=== PATIENT | female | born 1995 | race Caucasian/White ===

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

== ENCOUNTER 2017-01-17 10:23 | Outpatient (CLI) | payer BC | END 2017-01-17 10:24 | disposition home or self-care (01) | LOC: LAB.R 10:23 | PROVIDERS: ATTEND Registered Nurse | DX: R10.2 Pelvic and perineal pain (principal) | CPT/HCPCS: 87491; 87591 ==

== ENCOUNTER 2017-03-02 17:35 | Emergency (ER) | payer OTHER, BC ==
[2017-03-02 17:41] VITALS: BP 119/68
[2017-03-02] MEDS ORDERED: PROPARACAINE 0.5% OPHTH DROPS 15 ML LEFTEYE STA (18:08)
[2017-03-02] MEDS ORDERED: PROPARACAINE 0.5% OPHTH DROPS 15 ML ONE (18:09)
[2017-03-02] MEDS ORDERED: ERYTHROMYCIN OPHTH OINT 1 GM TUBE LEFTEYE STA (18:29)
[2017-03-02] MEDS ORDERED: IBUPROFEN 400 MG TABLET PO STA (18:29)
--- NOTE | 2017-03-02 18:29 | ED Physician Documentation ---
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 : None HEENT: None Psych: None Musculoskeletal: None Derm: None - Past Surgical History Past Surgical History: No - Present Medications Home Medications: Ambulatory Orders Medication Instructions Recorded Confirmed Levothyroxine [Synthroid] 100 mg PO DAILY 08/07/15 03/02/17 Erythromycin Base [Erythromycin] 1 applic OP Q4H #1 tub 03/02/17 Ibuprofen [Motrin] 400 mg PO Q6H PRN #30 tablet 03/02/17 Propylene Glycol/Peg 400 1 drops OP Q1H PRN #1 bot 03/02/17 [Lubricant Eye Drops] - Allergies Allergies/Adverse Reactions: Allergies Allergy/AdvReac Type Severity Reaction Status Date / Time levothyroxine sodium AdvReac Rash Verified 03/02/17 17:41 Penicillins AdvReac Rash Verified 03/02/17 17:41 - Social History Does the pt smoke?: No Smoking Status: Never smoker Does the pt drink ETOH?: No Does the pt have substance abuse?: No - Immunizations Immunizations are current?: Yes - POLST Patient has POLST: No PD ED PE NORMAL - Vitals Vital signs reviewed: Yes - General General: Alert and oriented X 3 - HEENT HEENT: PERRL, EOMI, Other (flourescein uptake inf lat sclera, no corneal abn) Results - Vitals Vitals: Vital Signs - 24 hr 03/02/17 17:37 Temperature 36.9 C Heart Rate 83 Respiratory 16 Rate Blood Pressure 119/68 O2 Saturation 98 Oxygen O2 Source Room air Departure - Departure Disposition: 01 Home, Self Care Clinical Impression: Burn of eye Qualifiers: Encounter type: initial encounter Laterality: left Qualified Code(s): T26.42XA - Burn of left eye and adnexa, part unspecified, initial encounter Condition: Good Prescriptions: Erythromycin Base [Erythromycin] 1 applic OP Q4H #1 tub Ibuprofen [Motrin] 400 mg PO Q6H PRN #30 tablet PRN Reason: Pain Propylene Glycol/Peg 400 [Lubricant Eye Drops] 1 drops OP Q1H PRN #1 bot PRN Reason: eye pain Comments: Recommend motrin and cool compresses for the pain Use the antibiotic ointment every 4 hr while awake. Use the lubricating drops as often as you like Follow up with your digital project manager if not better by Saturday Forms: Activity restrictions
[2017-03-02] MEDS ORDERED: IBUPROFEN 400 MG TABLET PO ONE (18:42)
[2017-03-02] MEDS ORDERED: ERYTHROMYCIN OPHTH OINT 1 GM TUBE ONE (18:43)
== END 2017-03-02 19:06 | disposition home or self-care (01) ==
LOC: ED 17:35
DX: T26.42XA Burn of left eye and adnexa, part unspecified, initial encounter (principal); X19.XXXA Contact with other heat and hot substances, initial encounter; Y99.0 Civilian activity done for income or pay; E03.9 Hypothyroidism, unspecified
CPT/HCPCS: 99283; A9270; J3490

== ENCOUNTER 2017-03-13 08:00 | Outpatient (CLI) | payer BC | END 2017-03-13 23:59 | disposition home or self-care (01) | LOC: LAB.R 08:00 | PROVIDERS: ATTEND Registered Nurse | DX: A56.02 Chlamydial vulvovaginitis (principal) | CPT/HCPCS: 87491; 87591 ==

== ENCOUNTER 2017-07-24 22:44 | Emergency (ER) | payer BC ==
--- NOTE | 2017-07-25 00:23 | XRAY Report ---
EXAM: LEFT TIBIA/FIBULA RADIOGRAPHY EXAM DATE: 07/25/2017 12:09 AM. CLINICAL HISTORY: Fell through a deck. COMPARISON: None. TECHNIQUE: 2 views. FINDINGS: Bones: Normal. No fracture or bone lesion. Joints: The visualized knee and ankle joints are normal. No effusions. Soft Tissues: Normal. No soft tissue swelling. IMPRESSION: Normal tibia/fibula radiography. [facility] Referring Provider Line: [phone] SITE ID: [id number]
--- NOTE | 2017-07-25 00:38 | ED Physician Documentation ---
PD HPI LOWER EXT INJURY - Stated complaint Stated Complaint: LEG INJURY - Chief complaint Chief Complaint: Ext Problem - History of Present Illness PD HPI LOW EXT INJURY LOCATION: Left, Lower leg Type of injury: Other (fell through the deck) Where injury occurred: Home Timing - onset: How many days ago (4) Timing - details: Abrupt onset Worsened by: Moving, Palpating Associated symptoms: Swelling, Discolored Contributing factors: No: Anticoagulated Similar symptoms before: Has not had sx before Recently seen: Not recently seen - Additional information Additional information: Patient is a 22 year old female with no significant past medical history who is presenting to the emergency department for leg pain. patient states that a couple of days ago she was stepped through a piece of wood on her deck. Patient has had pain and bruising in her leg since then and patient states that it is getting progressively worse. Review of Systems Constitutional: denies: Fever, Chills Eyes: reports: Reviewed and negative Ears: reports: Reviewed and negative Nose: reports: Reviewed and negative Throat: reports: Reviewed and negative Cardiac: reports: Reviewed and negative Respiratory: reports: Reviewed and negative GI: reports: Reviewed and negative : reports: Reviewed and negative Skin: reports: Lesions, Abrasion (s). 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 : None HEENT: None Psych: None Musculoskeletal: None Derm: None - Past Surgical History Past Surgical History: Yes HEENT: Tonsil/Adenoidectomy - Present Medications Home Medications: Ambulatory Orders Medication Instructions Recorded Confirmed Cyclobenzaprine [Flexeril] 10 mg PO TID PRN #20 tablet 03/10/17 Levothyroxine Sodium [Synthroid] 1 tab PO DAILY 03/10/17 03/10/17 oxyCODONE/ACET 5/325 [Percocet 5 1 - 2 each PO Q6H PRN #14 tablet 03/10/17 mg/325 mg] - Allergies Allergies/Adverse Reactions: Allergies Allergy/AdvReac Type Severity Reaction Status Date / Time hydrocodone AdvReac Rash Verified 07/24/17 22:59 levothyroxine sodium AdvReac Rash Verified 03/10/17 00:17 Penicillins AdvReac Rash Verified 03/10/17 00:17 prednisolone AdvReac Unknown Verified 07/24/17 22:59 - Social History Does the pt smoke?: No Smoking Status: Never smoker Does the pt drink ETOH?: No Does the pt have substance abuse?: No - Immunizations Immunizations are current?: Yes - POLST Patient has POLST: No PD ED PE NORMAL - Vitals Vital signs reviewed: Yes - General General: Alert and oriented X 3, No acute distress - HEENT HEENT: Atraumatic, PERRL - Neck Neck: No bony TTP - Cardiac Cardiac: RRR - Respiratory Respiratory: No respiratory distress - Abdomen Abdomen: Non distended - Neuro Neuro: Alert and oriented X 3, No motor deficit, No sensory deficit Eye Opening: Spontaneous PD ED PE EXPANDED - Extremities Extremities: Left leg (tenderess, swelling and ecchymosis of left proximal lower leg), Motor intact, Sensory intact, Vascular intact, Tendon intact Results - Vitals Vitals: Vital Signs - 24 hr 07/24/17 22:56 Temperature 36.8 C Heart Rate 94 Respiratory 17 Rate Blood Pressure 132/62 H O2 Saturation 89 L Oxygen O2 Source Room air - Rads (name of study) tib fib Radiology: Final report received (no acute fracture or dislocation) PD MEDICAL DECISION MAKING - ED course Complexity details: reviewed old records, reviewed results, re-evaluated patient , considered differential, d/w patient, d/w family ED course: Patient was seen and examined at bedside. Imaging was ordered. When patient returned from imaging the results were reviewed. There was no acute fracture or dislocation. patient requiered no further work up and was stable for discharge with outpatient follow up. Departure - Departure Disposition: 01 Home, Self Care Clinical Impression: Contusion of leg, left Condition: Good Instructions: ED Contusion Lower Ext Follow-Up: Marlena Marquez PA-C [Primary Care Provider] - As Needed Comments: Your diagnostic today were within normal limits. there is no acute fracture or dislocation. You should continue to alternate between ice and heat on your leg. You can take motrin or tylenol as needed for pain. You can work, but you should try to elevate your leg when you are not working. Forms: Activity restrictions
[2017-07-25 00:46] VITALS: BP 129/71
== END 2017-07-25 00:46 | disposition home or self-care (01) ==
LOC: ED 22:44
DX: S80.12XA Contusion of left lower leg, initial encounter (principal); W17.89XA Other fall from one level to another, initial encounter; Y92.007 Garden or yard of unspecified non-institutional (private) residence as the place of occurrence of the external cause; E03.9 Hypothyroidism, unspecified
CPT/HCPCS: 99283

== ENCOUNTER 2018-06-14 18:10 | Emergency (ER) | payer BC, MEDICAID ==
[2018-06-14] MEDS ORDERED: SODIUM CHLORIDE 0.9% 1,000 ML IV ONE (18:52)
[2018-06-14] MEDS ORDERED: PROMETHAZINE INJ 25 MG in SODIUM CHLORIDE 0.9% 50 ML IV STA (18:53)
[2018-06-14] MEDS ORDERED: LOPERAMIDE 2 MG CAPSULE PO STA (18:53)
--- NOTE | 2018-06-14 18:54 | ED Physician Documentation ---
PD HPI NVD - Stated complaint Stated Complaint: N/V/F/D - Chief complaint Chief Complaint: Abd Pain - History obtained from History obtained from: Patient, Family - History of Present Illness Timing - onset: Other (This is a 23-year-old woman is been sick for about 5 days, it started with 3 days of vomiting. Then she was better for most of the day but now has vomiting and diarrhea without abdominal pain for the last 36 hours. She took a test yesterday which was negative. She has had some dizziness with it. Her brother was sick with GI symptoms last week.) Review of Systems Constitutional: denies: Fever, Chills Respiratory: denies: Dyspnea, Cough GI: reports: Nausea, Vomiting, Diarrhea. 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 : None HEENT: None Psych: None Musculoskeletal: None Derm: None - Past Surgical History Past Surgical History: Yes HEENT: Tonsil/Adenoidectomy - Present Medications Home Medications: Ambulatory Orders Medication Instructions Recorded Confirmed Cyclobenzaprine [Flexeril] 10 mg PO TID PRN #20 tablet 03/10/17 Levothyroxine Sodium [Synthroid] 1 tab PO DAILY 03/10/17 03/10/17 oxyCODONE/ACET 5/325 [Percocet 5 1 - 2 each PO Q6H PRN #14 tablet 03/10/17 mg/325 mg] Promethazine [Phenergan] 25 mg PO Q6H PRN #10 tab 06/14/18 - Allergies Allergies/Adverse Reactions: Allergies Allergy/AdvReac Type Severity Reaction Status Date / Time hydrocodone AdvReac Rash Verified 06/14/18 18:43 levothyroxine sodium AdvReac Rash Verified 06/14/18 18:43 Penicillins AdvReac Rash Verified 06/14/18 18:43 prednisolone AdvReac Unknown Verified 06/14/18 18:43 - Social History Does the pt smoke?: No Smoking Status: Never smoker Does the pt drink ETOH?: No Does the pt have substance abuse?: No - Immunizations Immunizations are current?: Yes - POLST Patient has POLST: No PD ED PE NORMAL - Vitals Vital signs reviewed: Yes - General General: Alert and oriented X 3, No acute distress - HEENT HEENT: PERRL, EOMI, Other (Tacky mucous membranes) - Neck Neck: Supple, no meningeal sign, No bony TTP - Cardiac Cardiac: RRR, No murmur - Respiratory Respiratory: No respiratory distress, Clear bilaterally - Abdomen Abdomen: Normal bowel sounds, Soft, Non tender - Neuro Neuro: Alert and oriented X 3, Normal speech - Psych Psych: Normal mood, Normal affect Results - Vitals Vitals: Vital Signs - 24 hr 06/14/18 18:38 Temperature 36.9 C Heart Rate 76 Respiratory 18 Rate Blood Pressure 137/77 H O2 Saturation 100 Oxygen O2 Source Room air - Labs Labs: Laboratory Tests 06/14/18 06/14/18 19:22 20:02 Sodium 135 Potassium 3.4 L Chloride 103 Carbon Dioxide 23 Anion Gap 9.0 BUN 11 Creatinine 0.7 Estimated GFR (MDRD) 106 Glucose 82 Calcium 9.2 Total Bilirubin 0.8 AST 18 ALT 15 Alkaline Phosphatase 68 Total Protein 8.2 Albumin 5.0 Globulin 3.2 Albumin/Globulin Ratio 1.6 Lipase 26 Urine Color YELLOW Urine Clarity CLEAR Urine pH 6.0 Ur Specific [place] 1.010 Urine Protein NEGATIVE Urine Glucose (UA) NEGATIVE Urine Ketones 15 H Urine Occult Blood NEGATIVE Urine Nitrite NEGATIVE Urine Bilirubin NEGATIVE Urine Urobilinogen 0.2 (NORMAL) Ur Leukocyte Esterase SMALL H Urine RBC None Seen Urine WBC 4-5 Ur Squamous Epith Cells MOD Squamous H Urine Bacteria Rare Ur Microscopic Review INDICATED Urine Culture Comments NOT INDICATED Urine HCG, Qual NEGATIVE PD MEDICAL DECISION MAKING - ED course ED course: 23-year-old woman with history of anxiety disorder presents with symptoms consistent with gastroenteritis as well as exposure to same. After the administration of Phenergan chosen for its anxiolytic Properties as well she was feeling good and passed an oral challenge. 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 Departure - Departure Disposition: 01 Home, Self Care Clinical Impression: Vomiting Qualifiers: Vomiting type: unspecified Vomiting Intractability: non-intractable Nausea presence: with nausea Qualified Code(s): R11.2 - Nausea with vomiting, unspecified Diarrhea Qualifiers: Diarrhea type: presumed infectious Qualified Code(s): R19.7 - Diarrhea, unspecified Condition: Good Record reviewed to determine appropriate education?: Yes Instructions: ED Nausea Vomiting Prescriptions: Promethazine [Phenergan] 25 mg PO Q6H PRN #10 tab PRN Reason: Nausea / Vomiting Comments: Return in 2 days if not better, anytime for new or worsening symptoms. Your blood pressure was elevated today on check into the emergency department. This does not mean that you have hypertension, it is a common phenomenon to come to the emergency department and have elevated blood pressure. I recommend that you see your primary care physician within the week to have it rechecked when you are feeling better. Forms: Activity restrictions
[2018-06-14 19:42] LABS: ALBUMIN/GLOBULIN RATIO 1.6 (1.0-2.2); BILIRUBIN,TOTAL 0.8 mg/dL (0.2-1.0); CALCIUM 9.2 mg/dL (8.5-10.3); CREATININE 0.7 mg/dL (0.4-1.0); TOTAL PROTEIN 8.2 g/dL (6.7-8.2)
[2018-06-14 20:15] LABS: BILIRUBIN,URINE NEGATIVE (NEGATIVE); GLUCOSE, URINE (UA) NEGATIVE (NEGATIVE); KETONES,URINE (UA) 15 mg/dL (NEGATIVE); LEUKOCYTE ESTERASE, URINE SMALL (NEGATIVE); NITRITE,URINE NEGATIVE (NEGATIVE); OCCULT BLOOD,URINE NEGATIVE (NEGATIVE); PROTEIN,URINE NEGATIVE (NEGATIVE); UROBILINOGEN,URINE 0.2 (NORMAL) E.U./dL (NORMAL)
[2018-06-14 20:23] LABS: CLARITY,URINE CLEAR (CLEAR); HCG UR QUAL NEGATIVE
[2018-06-14 20:35] LABS: BACTERIA,URINE Rare /HPF (None Seen); RBC,URINE None Seen /HPF (0-5); SQUAMOUS EPITHELIAL CELL,UR MOD Squamous (<= Few)
[2018-06-14] MEDS ORDERED: ONDANSETRON ODT 4 MG Prepack 2 TL STA (20:37)
[2018-06-14 20:43] VITALS: BP 119/75
== END 2018-06-14 20:48 | disposition home or self-care (01) ==
LOC: ED 18:10
DX: R11.2 Nausea with vomiting, unspecified (principal); R19.7 Diarrhea, unspecified; R03.0 Elevated blood-pressure reading, without diagnosis of hypertension; E03.9 Hypothyroidism, unspecified
CPT/HCPCS: 36415; 80053; 81001; 81025; 83690; 96361; 96374; 99283; A9270; J7040; 81003; 87086

== ENCOUNTER 2018-08-22 08:00 | Outpatient (CLI) | payer MEDICAID ==
[2018-08-22 18:48] LABS: BASOPHILS % (AUTO) 0.3 %; EOSINOPHILS # (AUTO) 0.2 10^3/uL (0.0-0.7); EOSINOPHILS % (AUTO) 2.1 %; HGB - HEMOGLOBIN 14.6 g/dL (12.0-16.0); LYMPHOCYTES # (AUTO) 2.1 10^3/uL (1.5-3.5); LYMPHOCYTES % (AUTO) 26.2 %; MEAN CORPUSCULAR HEMOGLOBIN 30.8 pg (27.0-31.0); MEAN CORPUSCULAR HGB CONC 33.1 g/dL (32.0-36.0); MEAN CORPUSCULAR VOLUME 92.9 fL (81.0-99.0); MEAN PLATELET VOLUME 8.1 fL (7.9-10.8); MONOCYTES # (AUTO) 0.7 10^3/uL (0.0-1.0); MONOCYTES % (AUTO) 8.9 %; NEUTROPHILS % (AUTO) 62.5 %; PLT - PLATELET COUNT 337 10^3/uL (130-450); RED BLOOD COUNT 4.75 10^6/uL (4.20-5.40); RED CELL DISTRIBUTION WIDTH 13.9 % (12.0-15.0)
[2018-08-23 11:57] LABS: HIV AG/AB 4TH GEN NON-REACTIVE (NON-REACTIVE)
== END 2018-08-22 23:59 | disposition home or self-care (01) ==
LOC: LAB.WCP 08:00
PROVIDERS: ATTEND Physician Assistant
DX: E03.9 Hypothyroidism, unspecified (principal); F32.9 Major depressive disorder, single episode, unspecified; Z11.3 Encounter for screening for infections with a predominantly sexual mode of transmission; A74.9 Chlamydial infection, unspecified
CPT/HCPCS: 36415; 80050; 87389; 87491; 87591

== ENCOUNTER 2018-08-26 08:00 | Outpatient (CLI) | payer MEDICAID | END 2018-08-26 08:01 | disposition home or self-care (01) | LOC: LAB.R 08:00 | PROVIDERS: ATTEND Physician Assistant | DX: A74.9 Chlamydial infection, unspecified (principal) | CPT/HCPCS: 87491; 87591 ==

== ENCOUNTER 2018-10-04 09:36 | Emergency (ER) | payer MEDICAID ==
[2018-10-04] MEDS ORDERED: HYDROmorphone 1 MG/ML CARPUJECT IVP STA ×2 (10:09→11:31)
[2018-10-04] MEDS ORDERED: ONDANSETRON 4 MG/2 ML VIAL IVP STA ×2 (10:09→12:47)
--- NOTE | 2018-10-04 10:11 | ED Physician Documentation ---
PD HPI FEMALE - Stated complaint Stated Complaint: ABD PX/FEMALE - Chief complaint Chief Complaint: Abd Pain - History obtained from History obtained from: Patient - History of Present Illness Timing - onset: Enter time (0130), Last night Timing - duration: Hours Timing - details: Abrupt onset, Still present Associated symptoms: Pelvic pain Contributing factors: IUD. No: Similar symptoms before: Has not had sx before Recently seen: Not recently seen - Additional information Additional information: 23-year-old previously well female with an IUD in place began to feel a pressure after intercourse about midnight last night following that she developed a sharper pain that progressed and peaked at about 1:30 in the morning. She has had persistent pain since and she is come to the emergency department this morning with pain that is severe and worse with any movement or deep breathing.She believes she may be about mid cycle and she has had problems previously with ovarian cyst. She has a sister who has had an ovary removed secondary to torsion. Review of Systems Constitutional: denies: Fever Eyes: denies: Decreased vision, Photophobia Ears: denies: Ear pain Nose: denies: Rhinorrhea / runny nose, Congestion Throat: denies: Sore throat Respiratory: denies: Cough GI: reports: Abdominal Pain. 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 : None HEENT: None Psych: None Musculoskeletal: None Derm: None - Past Surgical History Past Surgical History: Yes HEENT: Tonsil/Adenoidectomy - Present Medications Home Medications: Ambulatory Orders Medication Instructions Recorded Confirmed Levothyroxine Sodium [Synthroid] 1 tab PO DAILY 03/10/17 10/04/18 Ondansetron Odt [Zofran] 4 mg TL Q6H PRN #10 tablet 10/04/18 Oxycodone HCl/Acetaminophen 1 - 2 each PO Q6H PRN #14 tablet 10/04/18 [Percocet 5-325 mg Tablet] - Allergies Allergies/Adverse Reactions: Allergies Allergy/AdvReac Type Severity Reaction Status Date / Time hydrocodone AdvReac Rash Verified 10/04/18 09:48 levothyroxine sodium AdvReac Rash Verified 10/04/18 09:48 Penicillins AdvReac Rash Verified 10/04/18 09:48 prednisolone AdvReac Unknown Verified 10/04/18 09:48 - Social History Does the pt smoke?: No Smoking Status: Never smoker Does the pt drink ETOH?: No Does the pt have substance abuse?: No - Immunizations Immunizations are current?: Yes - POLST Patient has POLST: No PD ED PE NORMAL - Vitals Vital signs reviewed: Yes (normal ) - General General: Alert and oriented X 3, Well developed/nourished, Other (appears to be in significant grunting pain with movement appears comfortable if she is completely still. ) - HEENT HEENT: Atraumatic, PERRL, EOMI - Neck Neck: Supple, no meningeal sign - Cardiac Cardiac: RRR, No murmur - Respiratory Respiratory: No respiratory distress, Clear bilaterally - Abdomen Abdomen: Soft, Other (mild suprapubic tenderness ) - Back Back: No CVA TTP, No spinal TTP - Derm Derm: Normal color, Warm and dry, No rash - Extremities Extremities: No deformity, No edema - Neuro Neuro: Alert and oriented X 3, contact assembler 2-12 intact, No motor deficit, No sensory deficit, Normal speech Eye Opening: Spontaneous Motor: Obeys Commands Verbal: Oriented GCS Score: 15 - Psych Psych: Normal mood, Normal affect Results - Vitals Vitals: Vital Signs - 24 hr 10/04/18 10/04/18 10/04/18 09:45 11:45 13:57 Temperature 36.4 C L 36.9 C Heart Rate 97 87 55 L Respiratory 14 24 18 Rate Blood Pressure 126/65 117/76 131/58 H O2 Saturation 100 98 100 Oxygen O2 Source Room air - Labs Labs: Laboratory Tests 10/04/18 10/04/18 10/04/18 10:14 10:14 10:14 WBC 10.1 RBC 4.53 Hgb 14.0 Hct 41.1 MCV 90.6 MCH 30.9 MCHC 34.1 RDW 13.1 Plt Count 303 MPV 7.4 L Neut # (Auto) 7.3 H Lymph # (Auto) 2.0 [place] # (Auto) 0.6 Eos # (Auto) 0.2 Baso # (Auto) 0.0 Absolute Nucleated RBC 0.00 Nucleated RBC % 0.0 Sodium 140 Potassium 3.5 Chloride 105 Carbon Dioxide 23 Anion Gap 12.0 BUN 13 Creatinine 0.8 Estimated GFR (MDRD) 91 Glucose 117 H Calcium 9.0 Total Bilirubin 0.8 AST 21 ALT 13 Alkaline Phosphatase 59 Total Protein 6.6 L Albumin 3.9 Globulin 2.7 Albumin/Globulin Ratio 1.4 Lipase 23 HCG, Quant < 0.60 Urine Color Urine Clarity Urine pH Ur Specific [place] Urine Protein Urine Glucose (UA) Urine Ketones Urine Occult Blood Urine Nitrite Urine Bilirubin Urine Urobilinogen Ur Leukocyte Esterase Urine RBC Urine WBC Ur Squamous Epith Cells Urine Bacteria Ur Microscopic Review Urine Culture Comments 10/04/18 10:28 WBC RBC Hgb Hct MCV MCH MCHC RDW Plt Count MPV Neut # (Auto) Lymph # (Auto) [place] # (Auto) Eos # (Auto) Baso # (Auto) Absolute Nucleated RBC Nucleated RBC % Sodium Potassium Chloride Carbon Dioxide Anion Gap BUN Creatinine Estimated GFR (MDRD) Glucose Calcium Total Bilirubin AST ALT Alkaline Phosphatase Total Protein Albumin Globulin Albumin/Globulin Ratio Lipase HCG, Quant Urine Color YELLOW Urine Clarity HAZY Urine pH 6.0 Ur Specific [place] <=1.005 Urine Protein NEGATIVE Urine Glucose (UA) NEGATIVE Urine Ketones NEGATIVE Urine Occult Blood NEGATIVE Urine Nitrite NEGATIVE Urine Bilirubin NEGATIVE Urine Urobilinogen 0.2 (NORMAL) Ur Leukocyte Esterase NEGATIVE Urine RBC 0-5 Urine WBC 4-5 Ur Squamous Epith Cells MANY Squamous H Urine Bacteria Many H Ur Microscopic Review INDICATED Urine Culture Comments NOT INDICATED - Rads (name of study) us pelvis Radiology: Prelim report reviewed (Impression: 1. Right ovary complex 3.6 cm cyst possibly hemorrhagic cyst. Normal blood flow seen in the right ovary. Follow-up ultrasound in 1-2 cycles. 2 Arterial and venous Blood flow are present to the ovaries bilaterally.), EMP read indepedently, See rad report Procedures - Bedside sono Bedside sono by EMP: With use of bedside ultrasound the pelvis is imaged the bladder is full there is no significant free fluid there is a generous endometrial stripe, or the IUD. I am not able to image either ovary. PD MEDICAL DECISION MAKING - ED course Complexity details: reviewed old records, reviewed results, re-evaluated patient, considered differential, d/w patient, d/w family ED course: 23-year-old female with acute pelvic pain has a hemorrhagic ovarian cyst on ultrasound examination. She is able to control her pain with intravenous Di laudid and Zofran and she would like to try to go home and control her pain there.She is encouraged to return to the emergency department for pain that she is not able to control. Departure - Departure Disposition: Home, Self Care Clinical Impression: Hemorrhagic cyst of right ovary Condition: Stable Instructions: ED Cyst Ovarian Follow-Up: Teresita Avery PA [Primary Care Provider] - [facility] [Provider Group] Prescriptions: Ondansetron Odt [Zofran] 4 mg TL Q6H PRN #10 tablet PRN Reason: Nausea / Vomiting Oxycodone HCl/Acetaminophen [Percocet 5-325 mg Tablet] 1 - 2 each PO Q6H PRN #14 tablet PRN Reason: pain Forms: Activity restrictions
[2018-10-04 10:19] LABS: BASOPHILS % (AUTO) 0.2 %; EOSINOPHILS # (AUTO) 0.2 10^3/uL (0.0-0.7); EOSINOPHILS % (AUTO) 1.6 %; MEAN CORPUSCULAR HEMOGLOBIN 30.9 pg (27.0-31.0); MEAN CORPUSCULAR HGB CONC 34.1 g/dL (32.0-36.0); MEAN CORPUSCULAR VOLUME 90.6 fL (81.0-99.0); MEAN PLATELET VOLUME 7.4 fL (7.9-10.8); MONOCYTES # (AUTO) 0.6 10^3/uL (0.0-1.0); MONOCYTES % (AUTO) 5.6 %; NEUTROPHILS # (AUTO) 7.3 10^3/uL (1.5-6.6); NEUTROPHILS % (AUTO) 72.6 %; PLT - PLATELET COUNT 303 10^3/uL (130-450); RED BLOOD COUNT 4.53 10^6/uL (4.20-5.40); RED CELL DISTRIBUTION WIDTH 13.1 % (12.0-15.0); WHITE BLOOD COUNT 10.1 x10^3/uL (4.8-10.8)
[2018-10-04 10:32] LABS: ALBUMIN 3.9 g/dL (3.2-5.5); ALBUMIN/GLOBULIN RATIO 1.4 (1.0-2.2); BILIRUBIN,TOTAL 0.8 mg/dL (0.2-1.0); CREATININE 0.8 mg/dL (0.4-1.0); TOTAL PROTEIN 6.6 g/dL (6.7-8.2)
[2018-10-04 10:51] LABS: BILIRUBIN,URINE NEGATIVE (NEGATIVE); GLUCOSE, URINE (UA) NEGATIVE (NEGATIVE); KETONES,URINE (UA) NEGATIVE (NEGATIVE); LEUKOCYTE ESTERASE, URINE NEGATIVE (NEGATIVE); NITRITE,URINE NEGATIVE (NEGATIVE); OCCULT BLOOD,URINE NEGATIVE (NEGATIVE); PROTEIN,URINE NEGATIVE (NEGATIVE); UROBILINOGEN,URINE 0.2 (NORMAL) E.U./dL (NORMAL)
[2018-10-04 10:55] LABS: CLARITY,URINE HAZY (CLEAR)
[2018-10-04 11:04] LABS: BACTERIA,URINE Many /HPF (None Seen); RBC,URINE 0-5 /HPF (0-5); SQUAMOUS EPITHELIAL CELL,UR MANY Squamous (<= Few)
--- NOTE | 2018-10-04 13:16 | Ultrasound Report ---
Reason: suprapubic pain severe mid cycle Procedure Date: 10/04/2018 Accession Number: [id number] / [id number] Procedure: US - Pelvic w/Transvag+Doppler Ltd CPT Code: FULL RESULT: EXAM: PELVIC ULTRASOUND WITH DOPPLERS CLINICAL HISTORY: Suprapubic pain severe mid cycle. COMPARISON: None. TECHNIQUE: Realtime transabdominal imaging performed to identify the uterus and adnexa and as an overview of other pelvic structures, followed by transvaginal imaging for better assessment of the endometrium and adnexa, with static image documentation. Color flow imaging and Doppler spectral analysis was performed to evaluate blood flow to the ovaries given pelvic pain and clinical concern for ovarian torsion. FINDINGS: Uterus: 8.3 x 3.7 x 5.9 cm, volume 96 cc. Anteverted position. Normal overall size and echotexture. Masses: None. Endometrium: 6 mm. IUD Cervix: Unremarkable. Right Ovary: 6.4 x 4 x 4.3 cm, volume 58 cc. Complex cyst 3.6 x 3.4 x 3.5 cm Arterial and venous blood flow are present. PSV 43 cm/sec. RI 0.5. Adnexa are unremarkable. Left Ovary: 3.8 x 1.9 x 3.6 cm, volume 13.4 cc. Normal echotexture. Arterial and venous blood flow are present. PSV 43 cm/sec. RI 0.9. Adnexa are unremarkable. Free Fluid: None. Other: None. IMPRESSION: 1. Right ovary complex 3.6 cm cyst possibly hemorrhagic cyst. Normal blood flow seen in the right ovary. Follow-up ultrasound in 1-2 cycles 2. Arterial and venous blood flow are present to the ovaries bilaterally. RADIA
[2018-10-04 13:57] VITALS: BP 131/58
== END 2018-10-04 13:59 | disposition home or self-care (01) ==
LOC: ED 09:36
DX: N83.201 Unspecified ovarian cyst, right side (principal); E03.9 Hypothyroidism, unspecified; Z87.42 Personal history of other diseases of the female genital tract
CPT/HCPCS: 36415; 76830; 76856; 80053; 81001; 83690; 84702; 85025; 93976; 96374; 96375; 96376; 99284; J1170; 81003; 87086

== ENCOUNTER 2018-10-06 | Emergency (ER) | payer MEDICAID | END 2018-10-06 11:45 | disposition home or self-care (01) | DX: N83.201 Unspecified ovarian cyst, right side (principal); Z97.5 Presence of (intrauterine) contraceptive device | CPT/HCPCS: 36415; 76830; 76856; 80048; 81001; 81003; 85025; 87086; 93976; 96374; 99283; 99284 ==

== ENCOUNTER 2023-03-18 08:00 | Outpatient (CLI) | payer MEDICAID ==
[2023-03-18 15:55] LABS: BILIRUBIN,URINE NEGATIVE (NEGATIVE); GLUCOSE, URINE (UA) NEGATIVE (NEGATIVE); KETONES,URINE (UA) NEGATIVE (NEGATIVE); LEUKOCYTE ESTERASE, URINE NEGATIVE (NEGATIVE); NITRITE,URINE NEGATIVE (NEGATIVE); OCCULT BLOOD,URINE NEGATIVE (NEGATIVE); PROTEIN,URINE NEGATIVE (NEGATIVE); UROBILINOGEN,URINE 0.2 (NORMAL) E.U./dL (NORMAL)
[2023-03-18 16:04] LABS: BACTERIA,URINE None Seen /HPF (None Seen); CLARITY,URINE CLEAR (CLEAR); MUCUS,URINE Few Strands; RBC,URINE 0-5 /HPF (0-5); SQUAMOUS EPITHELIAL CELL,UR RARE Squamous (<= Few); WBC,URINE 0-3 /HPF (0-5)
== END 2023-03-18 23:59 | disposition home or self-care (01) ==
LOC: LAB.WCP 08:00
PROVIDERS: ATTEND Obstetrics & Gynecology
DX: Z34.90 Encounter for supervision of normal pregnancy, unspecified, unspecified trimester (principal)
CPT/HCPCS: 81001; 87086

== ENCOUNTER 2023-03-19 12:40 | Outpatient (CLI) | payer MEDICAID ==
[2023-03-19 17:54] LABS: BASOPHILS % (AUTO) 0.4 %; EOSINOPHILS # (AUTO) 0.1 10^3/uL (0.0-0.7); EOSINOPHILS % (AUTO) 0.5 %; HCT - HEMATOCRIT 40.6 % (37.0-47.0); HGB - HEMOGLOBIN 13.8 g/dL (12.0-16.0); LYMPHOCYTES # (AUTO) 2.1 10^3/uL (1.5-3.5); MEAN CORPUSCULAR HEMOGLOBIN 30.3 pg (27.0-31.0); MEAN PLATELET VOLUME 10.2 fL (7.9-10.8); MONOCYTES # (AUTO) 0.8 10^3/uL (0.0-1.0); MONOCYTES % (AUTO) 7.3 %; NEUTROPHILS # (AUTO) 7.4 10^3/uL (1.5-6.6); NEUTROPHILS % (AUTO) 71.5 %; PLT - PLATELET COUNT 326 10^3/uL (130-450); RED BLOOD COUNT 4.56 10^6/uL (4.20-5.40); RED CELL DISTRIBUTION WIDTH 12.8 % (12.0-15.0); WHITE BLOOD COUNT 10.3 x10^3/uL (4.8-10.8)
[2023-03-21 06:09] LABS: HBsAG SCREEN Negative (Negative)
[2023-03-21 07:10] LABS: RPR Non Reactive (Non Reactive)
[2023-03-21 09:09] LABS: VARICELLA-ZOSTER AB IGG 323 index (Immune >165)
[2023-03-22 01:08] LABS: HCV AB Non Reactive (Non Reactive); HIV SCREEN 4TH GENERATION Non Reactive (Non Reactive)
== END 2023-03-19 12:41 | disposition home or self-care (01) ==
LOC: LAB.N 12:40
PROVIDERS: ATTEND Obstetrics & Gynecology
DX: Z34.90 Encounter for supervision of normal pregnancy, unspecified, unspecified trimester (principal)
CPT/HCPCS: 36415; 85025; 86592; 86762; 86787; 86803; 86850; 86900; 86901; 87340; 87389

== ENCOUNTER 2023-03-22 08:48 | Emergency (ER) | payer MEDICAID ==
--- NOTE | 2023-03-22 09:15 | ED Physician Documentation ---
PD HPI NVD - Stated complaint Stated Complaint: N/V - Chief complaint Chief Complaint: Abd Pain - History obtained from History obtained from: Patient - History of Present Illness Timing - onset: How many days ago (particularly worse the past 3 days with vomiting several times daily and persistent nausea. Has had nausea with vomiting daily for the past 4 weeks after discovering that she was (at about 5 weeks EGA). Had an appt with [facility] with Rx for Zofran, but has had increased N/V recently.), How many weeks ago (about 4 weeks of nausea with occasional vomiting total.) Timing - duration: Weeks Timing - details: Gradual onset, Still present, Waxing and waning (with worse the last several days.) Associated symptoms: Abdominal pain (intermitent lower abd cramping without vaginal bleeding.), Loss of appetite. No: Fever, Dysuria, Vaginal bleeding, Vaginal dc Contributing factors: Other ( 9 weeks EGA.). No: Sick contact Improved by: No: Vomiting Worsened by: Eating Similar symptoms before: Has not had sx before Recently seen: Clinic (couple weeks ago for initial OB visit. Rx Zofran and has appt for outpt US in 2 days.) Review of Systems Constitutional: reports: Fatigue. denies: Fever, Chills, Myalgias Throat: denies: Sore throat Respiratory: denies: Cough GI: reports: Nausea, Vomiting. denies: Constipation, Diarrhea : reports: Now EGA (9 weeks). 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 : None HEENT: None Psych: None Musculoskeletal: None Derm: None - Past Surgical History Past Surgical History: Yes HEENT: Tonsil/Adenoidectomy - Present Medications Home Medications: Ambulatory Orders Medication Instructions Recorded Confirmed Ondansetron Odt [Zofran] 4 mg TL Q6H PRN #10 tablet 10/06/18 03/22/23 Famotidine [Pepcid] 20 mg PO DAILY #20 tablet 03/22/23 Promethazine Supp [Phenergan Supp] 25 mg PA Q6H PRN #10 supp 03/22/23 Promethazine [Phenergan] 25 mg PO Q6H PRN #15 tab 03/22/23 Pyridoxine HCl (Vitamin B6) 25 mg PO BID #60 tablet 03/22/23 [Vitamin B-6] dexAMETHasone [Decadron] 4 mg PO DAILY #5 tablet 03/22/23 - Allergies Allergies/Adverse Reactions: Allergies Allergy/AdvReac Type Severity Reaction Status Date / Time hydrocodone AdvReac Rash Verified 03/22/23 09:25 levothyroxine sodium AdvReac Rash Verified 03/22/23 09:25 Penicillins AdvReac Rash Verified 03/22/23 09:25 prednisolone AdvReac Unknown Verified 03/22/23 09:25 - Social History Does the pt smoke?: No Smoking Status: Never smoker Does the pt drink ETOH?: No Does the pt have substance abuse?: No - Immunizations Immunizations are current?: Yes - POLST Patient has POLST: No PD ED PE NORMAL - Vitals Vital signs reviewed: Yes - General General: Alert and oriented X 3, No acute distress, Well developed/nourished - HEENT HEENT: Pharynx benign. No: Moist mucous membranes - Neck Neck: Supple, no meningeal sign, No adenopathy - Cardiac Cardiac: RRR, No murmur - Respiratory Respiratory: Clear bilaterally - Abdomen Abdomen: Normal bowel sounds, Soft, Non tender, Non distended, Other (limited bedside US showing IUP with some movement and FHR noted. No pelvic free fluid. Size appears c/w dates or slightly further. ) Results - Vitals Vitals: Vital Signs - 24 hr 03/22/23 03/22/23 03/22/23 08:53 10:33 12:15 Temperature 36.7 C Heart Rate 81 66 63 Respiratory 20 18 18 Rate Blood Pressure 139/80 H 117/69 102/68 O2 Saturation 99 97 100 Oxygen O2 Source Room air - Labs Labs: Laboratory Tests 03/22/23 03/22/23 03/22/23 09:15 09:48 09:48 WBC 8.6 RBC 4.60 Hgb 14.1 Hct 40.4 MCV 87.8 MCH 30.7 MCHC 34.9 RDW 12.5 Plt Count 324 MPV 9.2 Neut # (Auto) 6.4 Lymph # (Auto) 1.6 [place] # (Auto) 0.5 Eos # (Auto) 0.1 Baso # (Auto) 0.0 Absolute Nucleated RBC 0.00 Nucleated RBC % 0.0 Sodium 136 Potassium 3.7 Chloride 104 Carbon Dioxide 24 Anion Gap 8.0 BUN 6 Creatinine 0.6 Estimated GFR (MDRD) 122 Glucose 83 Calcium 9.5 Magnesium 1.8 Total Bilirubin 0.5 AST 12 ALT 9 L Alkaline Phosphatase 56 Total Protein 6.9 Albumin 4.7 Globulin 2.2 Albumin/Globulin Ratio 2.1 Lipase < 10 L Urine Color LT. YELLOW Urine Clarity HAZY Urine pH 6.5 Ur Specific [place] <=1.005 Urine Protein NEGATIVE Urine Glucose (UA) NEGATIVE Urine Ketones 15 H Urine Occult Blood NEGATIVE Urine Nitrite NEGATIVE Urine Bilirubin NEGATIVE Urine Urobilinogen 0.2 (NORMAL) Ur Leukocyte Esterase NEGATIVE Urine RBC 0-5 Urine WBC 0-3 Ur Squamous Epith Cells MOD Squamous H Urine Bacteria Few Ur Microscopic Review INDICATED Urine Culture Comments NOT INDICATED PD Medical Decision Making - ED course Complexity details: reviewed results (normal CBC, lytes, glucose and UA - reviewed by me. ), re-evaluated patient (She is feeling improved with IV fluids and combo meds of Zofran, Compazine, toradol (which is okay under 20 wks gestation).), considered differential ( and has had some N/V for about 4 weeks, worse the past several days. No URI symptoms. No diarrhea. Presume related and not c/w GE. Check lytes, glucose, cbc, UA. ), d/w patient ED course: bedside US sby me showing normal IUP with distinguished torso, some movement and FHR. Has formal US in 2 days so I did not do dating but size appeared c/w dates or slightly further. Departure - Departure Disposition: 01 Home, Self Care Clinical Impression: Nausea and vomiting, , Dehydration during Condition: Stable Record reviewed to determine appropriate education?: Yes Instructions: ED Preg Morning Sickness, ED Nausea Vomiting Follow-Up: José Chavez MD [Primary Care Provider] - Prescriptions: dexAMETHasone [Decadron] 4 mg PO DAILY #5 tablet Famotidine [Pepcid] 20 mg PO DAILY #20 tablet Promethazine [Phenergan] 25 mg PO Q6H PRN #15 tab PRN Reason: Nausea / Vomiting Promethazine Supp [Phenergan Supp] 25 mg PA Q6H PRN #10 supp PRN Reason: Nausea / Vomiting Pyridoxine HCl (Vitamin B6) [Vitamin B-6] 25 mg PO BID #60 tablet Comments: , Medications to take for related nausea can be doxylamine vitamin B6. I wrote for prescription for that twice daily with food. You have the ondansetron to use for nausea. I added promethazine as oral tablet or suppository to add if needed. These can make you somewhat sleepy as they are antihistamines similar to the doxylamine. If you find still some consistent nausea, you could do dexamethasone which is a low-dose steroid for several days. This is also used in related nausea. It would have the possibility of causing some irritability but this is a fairly low dose. I sent these prescriptions to your preferred pharmacy. Small frequent fluids. [place] diet. You likely have some irritation of the stomach from the nausea and vomiting so an acid reducing medicine such as famotidine can be appropriate as well. Follow-up with the women's health clinic. See if they have a sooner appointment than your scheduled April. Call them later today. Return if worsening or not improved with the above medications. Forms: PCP List Discharge Date/Time: 03/22/23 12:30
[2023-03-22 09:44] LABS: BILIRUBIN,URINE NEGATIVE (NEGATIVE); GLUCOSE, URINE (UA) NEGATIVE (NEGATIVE); KETONES,URINE (UA) 15 mg/dL (NEGATIVE); LEUKOCYTE ESTERASE, URINE NEGATIVE (NEGATIVE); NITRITE,URINE NEGATIVE (NEGATIVE); OCCULT BLOOD,URINE NEGATIVE (NEGATIVE); PH,URINE 6.5 PH (5.0-7.5); PROTEIN,URINE NEGATIVE (NEGATIVE); UROBILINOGEN,URINE 0.2 (NORMAL) E.U./dL (NORMAL)
[2023-03-22 09:45] LABS: CLARITY,URINE HAZY (CLEAR)
[2023-03-22] MEDS ORDERED: KETOROLAC 15 MG/ML VIAL IVP STA (09:49)
[2023-03-22] MEDS ORDERED: PROCHLORPERAZINE 10 MG/2 ML VIAL IVP STA (09:49)
[2023-03-22] MEDS ORDERED: SODIUM CHLORIDE 0.9% 2,000 ML IV STA (09:49)
[2023-03-22] MEDS ORDERED: ONDANSETRON 4 MG/2 ML VIAL IVP STA (09:49)
[2023-03-22] MEDS ORDERED: FAMOTIDINE 20 MG/2 ML VIAL IVP STA (09:50)
[2023-03-22 09:57] LABS: BASOPHILS % (AUTO) 0.5 %; EOSINOPHILS # (AUTO) 0.1 10^3/uL (0.0-0.7); EOSINOPHILS % (AUTO) 0.6 %; HCT - HEMATOCRIT 40.4 % (37.0-47.0); HGB - HEMOGLOBIN 14.1 g/dL (12.0-16.0); LYMPHOCYTES # (AUTO) 1.6 10^3/uL (1.5-3.5); LYMPHOCYTES % (AUTO) 18.8 %; MEAN CORPUSCULAR HEMOGLOBIN 30.7 pg (27.0-31.0); MEAN CORPUSCULAR HGB CONC 34.9 g/dL (32.0-36.0); MEAN CORPUSCULAR VOLUME 87.8 fL (81.0-99.0); MEAN PLATELET VOLUME 9.2 fL (7.9-10.8); MONOCYTES # (AUTO) 0.5 10^3/uL (0.0-1.0); MONOCYTES % (AUTO) 5.7 %; NEUTROPHILS # (AUTO) 6.4 10^3/uL (1.5-6.6); NEUTROPHILS % (AUTO) 74.1 %; PLT - PLATELET COUNT 324 10^3/uL (130-450); RED CELL DISTRIBUTION WIDTH 12.5 % (12.0-15.0); WHITE BLOOD COUNT 8.6 x10^3/uL (4.8-10.8)
[2023-03-22 10:19] LABS: BACTERIA,URINE Few /HPF (None Seen); RBC,URINE 0-5 /HPF (0-5); SQUAMOUS EPITHELIAL CELL,UR MOD Squamous (<= Few); WBC,URINE 0-3 /HPF (0-5)
[2023-03-22 10:22] LABS: ALBUMIN 4.7 g/dL (3.2-5.5); ALBUMIN/GLOBULIN RATIO 2.1 (1.0-2.2); ALKALINE PHOSPHATASE 56 IU/L (42-121); ALT ALANINE AMINOTRANSFERASE 9 IU/L (10-60); AST ASPARTATE AMINOTRANSFERASE 12 IU/L (10-42); BILIRUBIN,TOTAL 0.5 mg/dL (0.2-1.0); BUN - BLOOD UREA NITROGEN 6 mg/dL (6-20); CALCIUM 9.5 mg/dL (8.5-10.3); CARBON DIOXIDE - CO2 24 mmol/L (21-32); CHLORIDE 104 mmol/L (101-111); CREATININE 0.6 mg/dL (0.6-1.3); GFR - MDRD 122 (>89); GLUCOSE 83 mg/dL (74-104); MAGNESIUM 1.8 mg/dL (1.7-2.3); POTASSIUM 3.7 mmol/L (3.5-4.5); SODIUM 136 mmol/L (135-145); TOTAL PROTEIN 6.9 g/dL (6.4-8.9)
[2023-03-22 10:30] LABS: LIPASE < 10 U/L (11-82)
[2023-03-22 12:20] VITALS: BP 102/68; O2SAT 100
== END 2023-03-22 12:30 | disposition home or self-care (01) ==
LOC: ED 08:48
DX: O21.8 Other vomiting complicating pregnancy (principal); E86.0 Dehydration; O99.281 Endocrine, nutritional and metabolic diseases complicating pregnancy, first trimester; Z3A.01 Less than 8 weeks gestation of pregnancy
CPT/HCPCS: 36415; 80053; 81001; 81003; 83690; 83735; 85025; 87086; 96361; 96374; 96375; 99284

== ENCOUNTER 2023-03-24 13:42 | Outpatient (CLI) | payer MEDICAID ==
--- NOTE | 2023-03-24 19:26 | Ultrasound Report ---
PROCEDURE: OB First Trimester w/TV INDICATIONS: POSITIVE TEST OUTSIDE/PRIOR DATING DATA: Last menstrual period (LMP): 01/28/2023. LMP-based estimated date of delivery (JESUS): 11/04/2023. First dating scan (date and location): 03/24/2023. Estimated date of delivery (JESUS) from first dating scan: 11/06/2023. TECHNIQUE: Real-time scanning was performed of the fetus and maternal pelvic organs, with image documentation. Endovaginal scanning was also performed to better visualize the fetus and maternal ovaries. COMPARISON: None. FINDINGS: Intrauterine gestational sac present. Embryo: pole with crown-rump length measuring 1.3 cm consistent with 7 weeks and 4 days. Heart rate: 169 bpm. Other: No perigestational fluid collection. Yolk sac is present. Measurement variability in dating: +/- 4 weeks by LMP, +/- 7 days by mean sac diameter (use before 6 weeks gestation if crown-rump length not able to be measured), +/- 5 days by crown-rump length (6-12 weeks gestation). Maternal organs: Ovaries appear within normal limits. Right ovarian corpus pseudocyst measuring 1.9 cm. IMPRESSION: Single live intrauterine consistent with 7 weeks and 4 days. Reviewed by: Irving Rosen MD on 03/24/2023 7:24 PM PST Approved by: Irving Rosen MD on 03/24/2023 7:24 PM PST Station ID: [id number]
== END 2023-03-24 13:43 | disposition home or self-care (01) ==
LOC: DI 13:42
PROVIDERS: ATTEND Obstetrics & Gynecology
DX: Z34.91 Encounter for supervision of normal pregnancy, unspecified, first trimester (principal)

== ENCOUNTER 2023-04-01 10:40 | Outpatient (CLI) | payer MEDICAID ==
[2023-04-02 20:48] LABS: CHLAMYDIA TRACHOMATIS DNA NEGATIVE (NEGATIVE); NEISSERIA GONORRHOEAE DNA NEGATIVE (NEGATIVE); TRICHOMONAS VAGINALIS DNA NEGATIVE (NEGATIVE)
== END 2023-04-01 23:59 | disposition home or self-care (01) ==
LOC: LAB.WC 10:40
PROVIDERS: ATTEND Obstetrics & Gynecology
DX: Z11.3 Encounter for screening for infections with a predominantly sexual mode of transmission (principal)
CPT/HCPCS: 87491; 87591; 87661

== ENCOUNTER 2023-04-08 11:36 | Outpatient (CLI) | payer MEDICAID | END 2023-04-08 11:37 | disposition home or self-care (01) | LOC: LAB 11:36 | PROVIDERS: ATTEND Obstetrics & Gynecology | DX: Z36.89 Encounter for other specified antenatal screening (principal); Z36.8A Encounter for antenatal screening for other genetic defects | CPT/HCPCS: 36415 ==

== ENCOUNTER 2023-06-15 01:53 | Emergency (ER) | payer MEDICAID ==
[2023-06-15 02:14] VITALS: O2SAT 99
[2023-06-15 02:28] LABS: BASOPHILS # (AUTO) 0.1 10^3/uL (0.0-0.1); BASOPHILS % (AUTO) 0.4 %; EOSINOPHILS # (AUTO) 0.2 10^3/uL (0.0-0.7); EOSINOPHILS % (AUTO) 1.4 %; HCT - HEMATOCRIT 36.9 % (37.0-47.0); HGB - HEMOGLOBIN 12.7 g/dL (12.0-16.0); LYMPHOCYTES # (AUTO) 3.3 10^3/uL (1.5-3.5); LYMPHOCYTES % (AUTO) 24.8 %; MEAN CORPUSCULAR HEMOGLOBIN 31.2 pg (27.0-31.0); MEAN CORPUSCULAR HGB CONC 34.4 g/dL (32.0-36.0); MEAN CORPUSCULAR VOLUME 90.7 fL (81.0-99.0); MEAN PLATELET VOLUME 9.4 fL (7.9-10.8); MONOCYTES % (AUTO) 7.3 %; NEUTROPHILS # (AUTO) 8.7 10^3/uL (1.5-6.6); NEUTROPHILS % (AUTO) 65.6 %; PLT - PLATELET COUNT 325 10^3/uL (130-450); RED BLOOD COUNT 4.07 10^6/uL (4.20-5.40); WHITE BLOOD COUNT 13.3 x10^3/uL (4.8-10.8)
[2023-06-15 02:30] LABS: BILIRUBIN,URINE NEGATIVE (NEGATIVE); GLUCOSE, URINE (UA) NEGATIVE (NEGATIVE); KETONES,URINE (UA) NEGATIVE (NEGATIVE); LEUKOCYTE ESTERASE, URINE NEGATIVE (NEGATIVE); NITRITE,URINE NEGATIVE (NEGATIVE); OCCULT BLOOD,URINE MODERATE (NEGATIVE); PH,URINE 6.5 PH (5.0-7.5); PROTEIN,URINE NEGATIVE (NEGATIVE); UROBILINOGEN,URINE 0.2 (NORMAL) E.U./dL (NORMAL)
[2023-06-15 02:59] LABS: ALBUMIN/GLOBULIN RATIO 1.7 (1.0-2.2); BILIRUBIN,TOTAL 0.2 mg/dL (0.2-1.0); CALCIUM 9.4 mg/dL (8.5-10.3); CREATININE 0.5 mg/dL (0.6-1.3); POTASSIUM 3.9 mmol/L (3.5-4.5); TOTAL PROTEIN 6.3 g/dL (6.4-8.9)
[2023-06-15 03:16] LABS: CLARITY,URINE CLEAR (CLEAR)
[2023-06-15 03:17] LABS: BACTERIA,URINE Rare /HPF (None Seen); RBC,URINE 0-5 /HPF (0-5); SQUAMOUS EPITHELIAL CELL,UR MOD Squamous (<= Few); WBC,URINE 0-3 /HPF (0-5)
--- NOTE | 2023-06-15 04:11 | ED Physician Documentation ---
PD HPI FEMALE - Stated complaint Stated Complaint: CRAMPING - Chief complaint Chief Complaint: Abd Pain - History obtained from History obtained from: Patient - Additional information Additional information: HPI from patient. Patient is 19.5 weeks , primagravida. At approximately 01:30 this morning, patient had scant blood when wiping after urinating. She says the toilet paper had "pink" on it; she subsequently had mild suprapubic cramping that waxes and wanes without exacerbating or ameliorating factors. She had one more episode of bright red blood (on pad) which she is confident was vaginal (and not urethral/in urine). She has not had any clots. Denies fever. Aside from mild suprapubic cramping, denies abdominal pain. 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 : None HEENT: None Psych: None Musculoskeletal: None Derm: None Other Past Medical History: Candy disease - Past Surgical History Past Surgical History: Yes HEENT: Tonsil/Adenoidectomy - Present Medications Home Medications: Ambulatory Orders Medication Instructions Recorded Confirmed No Known Home Medications 06/15/23 06/15/23 - Allergies Allergies/Adverse Reactions: Allergies Allergy/AdvReac Type Severity Reaction Status Date / Time hydrocodone AdvReac Rash Verified 06/15/23 02:06 levothyroxine sodium AdvReac Rash Verified 06/15/23 02:06 Penicillins AdvReac Rash Verified 06/15/23 02:06 prednisolone AdvReac Unknown Verified 06/15/23 02:06 - Social History Does the pt smoke?: No Smoking Status: Never smoker Does the pt drink ETOH?: No Does the pt have substance abuse?: No - Immunizations Immunizations are current?: Yes - POLST Patient has POLST: No PD ED PE NORMAL - Vitals Vital signs reviewed: Yes - General General: Alert and oriented X 3, No acute distress, Well developed/nourished - Cardiac Cardiac: RRR, No murmur - Respiratory Respiratory: No respiratory distress, Clear bilaterally - Abdomen Abdomen: Soft, Non tender - Back Back: No CVA TTP Results - Vitals Vitals: Oxygen O2 Source Room air - Labs Labs: Laboratory Tests 06/15/23 06/15/23 06/15/23 02:13 02:19 02:19 WBC 13.3 H RBC 4.07 L Hgb 12.7 Hct 36.9 L MCV 90.7 MCH 31.2 H MCHC 34.4 RDW 13.0 Plt Count 325 MPV 9.4 Neut # (Auto) 8.7 H Lymph # (Auto) 3.3 [place] # (Auto) 1.0 Eos # (Auto) 0.2 Baso # (Auto) 0.1 Absolute Nucleated RBC 0.00 Nucleated RBC % 0.0 Sodium 136 Potassium 3.9 Chloride 106 Carbon Dioxide 22 Anion Gap 8.0 BUN 8 Creatinine 0.5 L Estimated GFR (MDRD) 149 Glucose 90 Calcium 9.4 Total Bilirubin 0.2 AST 13 ALT 12 Alkaline Phosphatase 61 Total Protein 6.3 L Albumin 4.0 Globulin 2.3 Albumin/Globulin Ratio 1.7 Lipase 15 Urine Color LIGHT YELLOW Urine Clarity CLEAR Urine pH 6.5 Ur Specific [place] <=1.005 Urine Protein NEGATIVE Urine Glucose (UA) NEGATIVE Urine Ketones NEGATIVE Urine Occult Blood MODERATE H Urine Nitrite NEGATIVE Urine Bilirubin NEGATIVE Urine Urobilinogen 0.2 (NORMAL) Ur Leukocyte Esterase NEGATIVE Urine RBC 0-5 Urine WBC 0-3 Ur Squamous Epith Cells MOD Squamous H Urine Bacteria Rare Ur Microscopic Review INDICATED Urine Culture Comments NOT INDICATED - Rads (name of study) OB 14+ weeks US Relevant Findings:: Prelim report reviewed, See rad report PD Medical Decision Making - ED course Complexity details: reviewed results, re-evaluated patient, considered differential, d/w patient ED course: Mild leukocytosis on CBC (13.3 wbc). Unremarkable ER abdominal panel. UA with moderate blood on macro but normal microscopic except squamous cells. US shows single viable IUP without evidence of complications such as abruption or previa. Results d/w patient, return precautions reviewed. Etiology of her symptoms is not apparent at this time. 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 Departure - Departure Disposition: 01 Home, Self Care Clinical Impression: Vaginal bleeding during Condition: Good Instructions: ED Pelvic Pain Preg UKO 2 or 3 Tri Comments: There were no concerning findings on tonight's tests including the blood test and urinalysis. The ultrasound does not demonstrate any problems with the . The cause of your symptoms is not apparent at this time. Follow up with your storekeeper helper, next available appointment Forms: PCP List Discharge Date/Time: 06/15/23 08:08
[2023-06-15 07:14] VITALS: BP 115/65
--- NOTE | 2023-06-15 08:29 | Ultrasound Report ---
PROCEDURE: OB 14+ Weeks INDICATIONS: 19.5 weeks ; vaginal bleeding, cramping OUTSIDE/PRIOR DATING DATA: Last menstrual period (LMP): 01/28/2023. LMP-based estimated date of delivery (JESUS): 11/04/2023. First dating scan (date and location): 03/24/2023. Estimated date of delivery (JESUS) from first dating scan: 11/06/2023. The below data below was generated using the ultrasound JESUS of 11/06/2023 TECHNIQUE: Real-time scanning was performed of the fetus, with image documentation and biometric measurements. Endovaginal scanning: Not performed. COMPARISON: 03/24/2023 FINDINGS: General: A single living intrauterine gestation is present. Presentation: Vertex Placenta: Placental position is anterior, without previa. The placenta is normal in appearance. heart rate: 138 beats per minute. Maternal cervical canal: 4.9 cm long; normal length is 2.5 cm or more. IMPRESSION: Single live intrauterine . The placenta is normal in appearance without evidence of previa. Reviewed by: Irving Rosen MD on 06/15/2023 8:28 AM PST Approved by: Irving Rosen MD on 06/15/2023 8:28 AM PST Station ID: [id number]
== END 2023-06-15 08:08 | disposition home or self-care (01) ==
LOC: ED 01:53
DX: O20.8 Other hemorrhage in early pregnancy (principal); Z3A.19 19 weeks gestation of pregnancy
CPT/HCPCS: 36415; 80053; 81001; 81003; 83690; 85025; 87086; 99283; 99284

== ENCOUNTER 2023-06-26 15:55 | Outpatient (CLI) | payer MEDICAID ==
--- NOTE | 2023-06-29 09:21 | Ultrasound Report ---
PROCEDURE: OB 14+ Weeks INDICATIONS: SUPERVISION OF OUTSIDE/PRIOR DATING DATA: Last menstrual period (LMP): 01/28/2023. LMP-based estimated date of delivery (JESUS): 11/04/2023. First dating scan (date and location): 03/24/2023. Estimated date of delivery (JESUS) from first dating scan: 11/06/2023. The below data below was generated using the ultrasound JESUS of 11/06/2023 TECHNIQUE: Real-time scanning was performed of the fetus, with image documentation and biometric measurements. Endovaginal scanning: Not performed. COMPARISON: OB ultrasound, 06/15/2023. FINDINGS: General: A single living intrauterine gestation is present. Presentation: Vertex. Placenta: Placental position is anterior, without previa. Amniotic fluid index: 17.4 cm, largest pocket 6.0 cm. heart rate: 152 beats per minute. Maternal cervical canal: Closed measuring 5.39 cm long; normal length is 2.5 cm or more. biometrics: Biparietal diameter: 4.9 cm; 20 weeks 6 days; 28.5% Head circumference: 19.02 cm; 21 weeks 2 days; 40.2% Abdominal circumference: 17.48 cm; 22 weeks 3 days; 78.0% Femur length: 3.82 cm; 22 weeks 2 days; 72.9% Estimated gestational age from initial scan: 21 weeks 2 days. Composite gestational age from present scan: 21 weeks 5 days. Estimated weight and percentile: 480.3 g; 86.9%. Measurement variability for biometric dating: +/- 10 days from 12-20 weeks gestation, +/- 2 weeks fro m 20-30 weeks gestation, +/- 3 weeks for 30 weeks gestation or later. Anatomic survey: Neuro: Ventricles are non-dilated at less than 10 mm. Cisterna magna is normal at 3-11 mm. Cerebel lum is normal in size and morphology. Nuchal skin fold: Normal at less than 6 mm between 14-20 weeks gestational age. Face: Nose and lips, facial profile are not well seen. Spine: No evidence for spina bifida. Heart: 4-chambered heart is present. The ventricular outflow tracts are not well seen. Diaphragm: Diaphragm is intact. Stomach: Left-sided stomach is present. Kidneys: No hydronephrosis. Normal is less than 5 mm in 2nd trimester, less than 7 mm in 3rd trimester. Cord: 3-vessel cord has orthotopic insertion. Bladder: Normal in size. Extremities: The extremities are not well seen. IMPRESSION: 1. A single living IUP with appropriate interval growth. 2. The face, cardiac outflow tract is an extremities are not well seen. Follow-up imaging is recommended. The rest of the anatomic survey is unremarkable. 3. weight is 86.9%. 4. ALESSANDRA 17.4 cm. Reviewed by: Delroy Weston MD on 06/29/2023 9:19 AM PST Approved by: Delroy Weston MD on 06/29/2023 9:19 AM PST Station ID: [id number]
== END 2023-06-26 15:56 | disposition home or self-care (01) ==
LOC: DI 15:55
PROVIDERS: ATTEND Nurse Practitioner Obstetrics & Gynecology
DX: Z34.02 Encounter for supervision of normal first pregnancy, second trimester (principal); Z36.89 Encounter for other specified antenatal screening

== ENCOUNTER 2023-07-10 12:51 | Outpatient (CLI) | payer MEDICAID ==
--- NOTE | 2023-07-10 21:29 | Ultrasound Report ---
PROCEDURE: OB Follow up INDICATIONS: SUPERVISION OF OUTSIDE/PRIOR DATING DATA: Last menstrual period (LMP): 01/28/2023. LMP-based estimated date of delivery (JESUS): 11/04/2023. First dating scan (date and location): 03/24/2023. Estimated date of delivery (JESUS) from first dating scan: 11/06/2023. The below data below was generated using the working JESUS of 11/06/2023 TECHNIQUE: Ultrasound of the gravid uterus was performed and recorded. COMPARISON: None. FINDINGS: General: A single live intrauterine gestation is present. Presentation: Vertex Placenta: Placental position is anterior without previa. Amniotic fluid index: 14.4 cm, within normal limits for gestational age. heart rate: 144 beats per minute. Maternal cervical canal: 3.7 cm long; normal length is 2.5 cm or more. Other: Right ventricular outflow track, left ventricular outflow track, four-chamber heart, nose, lip s and extremities are within normal limits. IMPRESSION: Single live intrauterine consistent with 23 week 0 day gestation by current ultrasound Remainder of the anatomic survey is within normal limits Reviewed by: Kamari Jimenez MD on 07/10/2023 8:28 PM [place] Approved by: Kamari Jimenez MD on 07/10/2023 8:28 PM [place] Station ID: [id number]
== END 2023-07-10 12:52 | disposition home or self-care (01) ==
LOC: DI 12:51
PROVIDERS: ATTEND Nurse Practitioner Obstetrics & Gynecology
DX: Z34.02 Encounter for supervision of normal first pregnancy, second trimester (principal); Z36.89 Encounter for other specified antenatal screening

== ENCOUNTER 2023-08-05 10:49 | Outpatient (CLI) | payer MEDICAID ==
[2023-08-05 11:36] LABS: GTT GLUCOSE,FASTING 77 mg/dL (74-109)
[2023-08-05 11:49] LABS: THYROID STIMULATING HORMONE 5.41 uIU/mL (0.34-5.60)
== END 2023-08-05 10:50 | disposition home or self-care (01) ==
LOC: LAB 10:49
PROVIDERS: ATTEND Nurse Practitioner Obstetrics & Gynecology
DX: O99.280 Endocrine, nutritional and metabolic diseases complicating pregnancy, unspecified trimester (principal); Z36.9 Encounter for antenatal screening, unspecified; Z67.91 Unspecified blood type, Rh negative
CPT/HCPCS: 36415; 82951; 84439; 84443; 86850

== ENCOUNTER 2023-11-12 14:23 | Inpatient (IN) | payer MEDICAID ==
[2023-11-12] MEDS ORDERED: TERBUTALINE 1 MG/ML VIAL SUBQ PRN (15:06)
[2023-11-12] MEDS ORDERED: METHYLERGONOVINE 0.2 MG/ML VIAL IM PRN (15:06)
[2023-11-12] MEDS ORDERED: OXYTOCIN/SODIUM CHLORIDE 500 ML IV PRN (15:06)
[2023-11-12] MEDS ORDERED: lidocaine 1% 20 ML MDV ID PRN (15:06)
[2023-11-12] MEDS ORDERED: TRANEXAMIC ACID IN NACL 1,000 MG/100 ML BAG IV PRN (15:06)
[2023-11-12] MEDS ORDERED: miSOPROStoL 200 MCG TABLET PR PRN (15:06)
[2023-11-12] MEDS ORDERED: SODIUM CHLORIDE FLUSH 0.9% 10 ML SYRINGE IVP PRN (15:06)
[2023-11-12] MEDS ORDERED: miSOPROStoL 200 MCG TABLET BC PRN (15:06)
[2023-11-12] MEDS ORDERED: OXYTOCIN 10 UNIT/ML VIAL IM PRN (15:06)
[2023-11-12] MEDS ORDERED: CARBOPROST TROMETHAMINE 250 MCG/ML VIAL IM PRN (15:06)
--- NOTE | 2023-11-12 15:19 | HISTORY & PHYSICAL EXAMINATION ---
Admit History - Visit Reason Visit Reason: Contractions, Membranes rupture - : 1 Parity: 0 Premature: 0 Ectopic: 0 : 0 [facility] This : positive: None Smoking Status: Never smoker - Mother's Labs Mother's Blood Type: positive: O Mother's RH: positive: Negative GBS: positive: Group B Step Negative Rubella Status: positive: Immune - Other Maternal History Other Maternal History: HPI: This 28 yo @ 41+1 weeks by sure LMP (01/28/2023) and confirmed by 7+4 week ultrasound. Upon arrival her cervix was 4/90/0 and vertex (by exam), grossly ruptured. She was seen in the clinic this morning, completed a reactive NST, ALESSANDRA 9.95. She then felt a small gush of fluid, then a larger gush that soaked her pants. SROM approximately 0830 (clear). SVE was 3/90/-1. She opted to work through early labor at home. She felt contractions became more intense about noon. She desires the lowest level of intervention possible as part of hospital . She has been a patient of [facility] since 19+2 weeks. 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 However, she denies having been evaluated by a neurologist. Was having intermittent tension- type headaches early in the third trimester that she felt were precursors to the psudo-seizures. However, with decreased family stressors, the headaches self- resolved and no psuedo-seizure events followed. No recent/current Headache, visual changes or right upper quadrant abdominal pain. Denies urinary urgency or dysuria. Denies new onset or significant Nausea/vomiting. Wiley and friend Reese, very supportive at bedside. Feels well informed. Mood is good. In the event of an emergency, she WILL accept a blood transfusion. Will desired Delayed cord clamping x2 hours Baby meds: considering vitamin K, DECLINING erythromycin and hep B. ROS: All other symptoms reviewed and were negative except per HPI. 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 Stopped drinking alcohol due to . Denies current use of tobacco, marijuana or other recreational drugs. Former tobacco user. Reports that she is safe in current relationship. Family Hx: Denies family history of congenital anomalies, Cystic Fibrosis or chromosomal abnormalities Recent BP: 116/81 Lab: CBC H&H: 132/38.9, PLT 335 FAS EFW: 86.9% Total maternal weight gain: 68# Allergies: penicillin, prednisolone, hydrocodone Medications: PNV, levothyroxine Course: Blood type O negative, antibody negative Rubella immune, Varicella Immune Hep B neg, Hep C neg HIV non-reactive, RPR non-reactive GCCT negative Genetic screening: NIPS negative Carrier screening: CF/SMA negative. FAS: 06/27/23 & 07/10/2023 (follow-up to complete scan) WNL glucola: 75g 1 hr = 122, 2 hr= 110 Tdap: declined GBS neg Physical exam: Normocephalic, atraumatic Heart RRR w/o M/G/R Lungs CTAB Abdomen gravid, soft, nontender. EFW: 4100 FHR baseline 135, moderate variability, + accelerations, no decelerations Contractions palpate moderate every 2.5-3.5 minutes with soft resting tone SVE 4/90/0, vertex, membranes grossly ruptured 1+ LE edema Mood is good. Assessment: 28 yo @ 41+ weeks gestation by 7+4 wk U/S Early labor, ruptured FHR 135, Category I GBS NEG Plan: Admit to [facility] expectant management Declines saline lock unless emergent situation encountered. Understands associated risk without immediate vascular access. Intermittent heart rate auscultation. Continuos EFM as indicated Jacuzzi PRN. Nitrous oxide PRN. Epidural PRN Maternal Request. Anticipate . Patient verbally consents to my participation in her care in my role as a student nurse astronomy teacher. LAKESHIA López, Student Nurse Supervisor Paper Machine - [facility] Current EDU 11/04/23 Gestation 41 Weeks and 1 Days 1 Vital Signs Temperature 36.7 C 07/09/24 14:35 Heart Rate 87 11/12/23 14:35 Respiratory Rate 18 11/12/23 14:35 Blood Pressure 116/81 H 11/12/23 14:35 Temperature 36.7 C 11/12/23 14:35 Heart Rate 87 11/12/23 14:35 Respiratory Rate 18 11/12/23 14:35 Blood Pressure 116/81 H 11/12/23 14:35 O2 Saturation If not protocol: Oxygen Flow, liters/minute Meds/Allgy - Home Medications Home Medications: Ambulatory Orders Medication Instructions Recorded Confirmed Acetaminophen [Tylenol] 650 mg PO Q6H PRN 11/12/23 11/12/23 Cetirizine [ZyrTEC] 10 mg PO DAILY PRN 11/12/23 11/12/23 Levothyroxine Sodium 50 mcg PO DAILY 11/12/23 11/12/23 Pnv No.95/Ferrous Fum/Folic AC 1 each PO DAILY 11/12/23 11/12/23 [ Tablet] - Allergies Allergies/Adverse Reactions: Allergies Allergy/AdvReac Type Severity Reaction Status Date / Time hydrocodone AdvReac Rash Verified 06/15/23 02:06 Penicillins AdvReac Rash Verified 11/12/23 15:42 prednisolone AdvReac Unknown Verified 06/15/23 02:06 Physical - Abdominal Exam Vital Signs: Temp Pulse Resp BP Pulse Ox O2 Flow Rate 36.7 C 87 18 116/81 H 11/12/23 14:35 11/12/23 14:35 11/12/23 14:35 11/12/23 14:35 Plan for Labor - Plan For Labor I expect patient to be DC'd or transferred within 96 hours.: Yes
[2023-11-12 15:38] LABS: BASOPHILS % (AUTO) 0.2 %; EOSINOPHILS # (AUTO) 0.1 10^3/uL (0.0-0.7); EOSINOPHILS % (AUTO) 0.6 %; HCT - HEMATOCRIT 38.3 % (37.0-47.0); HGB - HEMOGLOBIN 13.2 g/dL (12.0-16.0); LYMPHOCYTES # (AUTO) 1.8 10^3/uL (1.5-3.5); LYMPHOCYTES % (AUTO) 12.5 %; MEAN CORPUSCULAR HEMOGLOBIN 31.5 pg (27.0-31.0); MEAN CORPUSCULAR HGB CONC 34.5 g/dL (32.0-36.0); MEAN CORPUSCULAR VOLUME 91.4 fL (81.0-99.0); MEAN PLATELET VOLUME 9.5 fL (7.9-10.8); MONOCYTES # (AUTO) 1.1 10^3/uL (0.0-1.0); MONOCYTES % (AUTO) 7.9 %; NEUTROPHILS # (AUTO) 11.3 10^3/uL (1.5-6.6); NEUTROPHILS % (AUTO) 77.7 %; PLT - PLATELET COUNT 335 10^3/uL (130-450); RED BLOOD COUNT 4.19 10^6/uL (4.20-5.40); RED CELL DISTRIBUTION WIDTH 13.7 % (12.0-15.0); WHITE BLOOD COUNT 14.5 x10^3/uL (4.8-10.8)
--- NOTE | 2023-11-12 15:45 | PHARMACY PROGRESS NOTE ---
- Best Possible Medication History Admit Date and Time: Processed by: Pharmacy Medications reviewed in ED?: No Medication History completed: Yes Patient Interview: Completed Secondary Source(s): Insurance records As the person ultimately responsible for medication therapy, providers are able to order a medication from an existing home medication list in [facility] via the "Reconcile Routine" prior to Confirmation of that medication by administrative support associate. Such practice is discouraged except when the physician, in their clinical judgment, deems that a medical need exists for a medication without regard to previous use.
--- NOTE | 2023-11-12 19:54 | PROVIDER PROGRESS NOTE ---
Labor Progress Note - Uterine Monitoring Uterine Monitoring Mode: positive: External toco Contraction Frequency (min/apart): q2-3 Contraction Intensity: positive: Moderate to strong Uterine Resting Tone: positive: Soft - Monitoring Monitor Mode: positive: External ultrasound Heart Rate Baseline: 130's Heart Rate Variability: positive: Moderate (6-25 bmp) Accelerations: positive: Present, 15x15 Decelerations: positive: None - Vaginal Exam Dilation (in cm): 5 Effacement (%): 90 Station: 0 - Labor Progress Note Labor Progress Note/Additional Text: S: Focused and breathing and through contractions which have increased in intensity since her arrival. Doesn't feel the contractions are strong enough for nitrous just yet. Her partner and friend are supportive at bedside O: FHR 130s, no significant decelerations SVE 5/90/0, vertex. A: 28yo @ 41.1wks gestation by 7+4 week ultrasound Active labor Postdates GBS Negative P: Support active labor per patient preference Patient aware of positional changes and pain management options, will ask for these specific when desired Continuous monitoring Anticipate . LAKESHIA López, Student Nurse Recovery Collector
--- NOTE | 2023-11-12 22:40 | PROVIDER PROGRESS NOTE ---
Labor Progress Note - Uterine Monitoring Uterine Monitoring Mode: positive: External toco Contraction Frequency (min/apart): q2-3 Uterine Resting Tone: positive: Soft - Monitoring Monitor Mode: positive: External ultrasound Heart Rate Baseline: 145 Heart Rate Variability: positive: Moderate (6-25 bmp) Accelerations: positive: Present, 15x15, Prolonged accelerations (>2x10 min) Decelerations: positive: None Strip Review: positive: Category I - Vaginal Exam Dilation (in cm): 6 Effacement (%): 90 Station: 1 - Labor Progress Note Labor Progress Note/Additional Text: S: Breathing through contractions which have increased in intensity since her arrival. Her and friend are supportive at the bedside. Called in by nursing team for some transient tachycardia, now resolved. Likely secondary to time in Jacuzzi tub. O: FHR 145s CTX q 2-3 minutes SVE 6/90/+1, vertex. A: 28yo @ 41.1wks gestation by 7+4 wk U/S Active labor Postdates P: continue continuos monitoring Will encouraged continued positional changes and ambulation Anticipate . LAKESHIA López, Student Nurse Protective Services Case Worker
--- NOTE | 2023-11-13 01:53 | PROVIDER PROGRESS NOTE ---
Labor Progress Note - Uterine Monitoring Uterine Monitoring Mode: positive: External toco Contraction Frequency (min/apart): 3-5 Contraction Intensity: positive: Strong Uterine Resting Tone: positive: Soft - Monitoring Monitor Mode: positive: Spiral electrode Heart Rate Baseline: 135 Heart Rate Variability: positive: Moderate (6-25 bmp) Accelerations: positive: Present, 15x15 Decelerations: positive: Prolonged (>2x10 min) Strip Review: positive: Category II - Vaginal Exam Dilation (in cm): 7 Station: 1 - Labor Progress Note Labor Progress Note/Additional Text: S: Breathing through contractions, doing well. Her and friend are supportive at the bedside. O: Prolonged deceleration identified. CNM and student nurse staff midwife/apprenticeship director to bedside. FHR 135's CTX q 3-5 minutes SVE 7/90/+1, vertex. Noted edema to anterior lip of cervix. A: 28yo @ 41.2wks gestation by 7+4 wk U/S Active labor Postdates P: FSE placed to achieve continuos tracing. Recommended IV placement for resuscitation and IV Benadryl for cervical edema Will plan to recheck cervix in a few hours to assess for further dilation. Will encouraged continued positional changes and ambulation Anticipate . LAKESHIA López, Student Nurse Business Unit Controller
[2023-11-13] MEDS: diphenhydrAMINE INJ 50 MG/ML VIAL IVP SCH (02:10)
--- NOTE | 2023-11-13 06:27 | PROVIDER PROGRESS NOTE ---
Labor Progress Note - Uterine Monitoring Uterine Monitoring Mode: positive: External toco Contraction Frequency (min/apart): q4-6 - Monitoring Monitor Mode: positive: Spiral electrode Heart Rate Baseline: 120 Heart Rate Variability: positive: Moderate (6-25 bmp) Accelerations: positive: Present, 15x15 Decelerations: positive: None Strip Review: positive: Category I - Vaginal Exam Dilation (in cm): 7 Effacement (%): 80 Station: 1 Cervical Position: Anterior - Labor Progress Note Labor Progress Note/Additional Text: : Seemingly less uncomfortable than with last check. Able to doze between contractions the last few hours. States, "I'm ready to be done. I'm going to start having seizures if I don't have a baby soon." Her is supportive at the bedside. O: Primarily category I tracing. FHR 120's CTX q 5-6 minutes SVE 7/90/+1, vertex. Noted increased edema to anterior lip of cervix. Afebrile isolated, mildly elevated blood pressure A: 28yo @ 41.2wks gestation by 7+4 wk U/S prolonged transition, cervical exam unchanged from last exam. Increasing cervical edema. Postdates P: maintain FSE for continuos monitoring maintain IV access. Initiate oxytocin for labor augmentation at 2mu/min. Monitor BP for further elevations Will encouraged continued positional changes and ambulation Encouraged more significant pain management re: patient concern for pending psueodo seizure. LAKESHIA López, Student Nurse Glue Line Operator
[2023-11-13] MEDS ORDERED: LIDOCAINE 2%-EPI 1:100000 20 ML MDV ONE ×2 (07:08→08:56)
[2023-11-13] MEDS ORDERED: ROPIVACAINE 0.2% 200 MG/100 ML BAG EP ONE (07:08)
[2023-11-13] MEDS ORDERED: ROPIVACAINE 0.2% 200 MG/100 ML BAG EP PRN (08:00)
[2023-11-13] MEDS ORDERED: NALOXONE 0.4 MG/ML VIAL IVP PRN ×3 (08:00→11:12)
[2023-11-13] MEDS ORDERED: ePHEDrine 50 MG/ML VIAL IVP PRN ×2 (08:00→11:12)
[2023-11-13] MEDS: OXYTOCIN/SODIUM CHLORIDE 500 ML IV SCH (08:09)
[2023-11-13] MEDS: LACTATED RINGERS 1,000 ML IV SCH (08:22)
[2023-11-13 08:33] LABS: BASOPHILS % (AUTO) 0.2 %; HCT - HEMATOCRIT 37.7 % (37.0-47.0); HGB - HEMOGLOBIN 12.7 g/dL (12.0-16.0); LYMPHOCYTES # (AUTO) 1.4 10^3/uL (1.5-3.5); LYMPHOCYTES % (AUTO) 6.2 %; MEAN CORPUSCULAR HGB CONC 33.7 g/dL (32.0-36.0); MEAN PLATELET VOLUME 9.5 fL (7.9-10.8); MONOCYTES # (AUTO) 1.2 10^3/uL (0.0-1.0); MONOCYTES % (AUTO) 5.2 %; NEUTROPHILS # (AUTO) 19.8 10^3/uL (1.5-6.6); NEUTROPHILS % (AUTO) 87.6 %; PLT - PLATELET COUNT 337 10^3/uL (130-450); RED CELL DISTRIBUTION WIDTH 13.7 % (12.0-15.0); WHITE BLOOD COUNT 22.5 x10^3/uL (4.8-10.8)
[2023-11-13 08:37] LABS: SLIDE REVIEW? Indicated
[2023-11-13] MEDS: diphenhydrAMINE INJ 50 MG/ML VIAL IVP ONE (08:42)
[2023-11-13 08:49] LABS: ALBUMIN 3.8 g/dL (3.2-5.5); ALBUMIN/GLOBULIN RATIO 1.2 (1.0-2.2); BILIRUBIN,TOTAL 0.4 mg/dL (0.2-1.0); CALCIUM 9.4 mg/dL (8.5-10.3); CREATININE 0.7 mg/dL (0.6-1.3); POTASSIUM 4.1 mmol/L (3.5-4.5); RBC MORPHOLOGY (MULTIPLE) 1+ ANISOCYTOSIS (NORMAL); TOTAL PROTEIN 7.1 g/dL (6.4-8.9)
[2023-11-13 08:55] LABS: CREATININE,URINE 89.8 mg/dL; PROTEIN/CREATININE RATIO,URINE 0.1 (<=0.2)
[2023-11-13] MEDS ORDERED: PHENYLEPHRINE HCL 0.5 MG/5 ML AMPULE ONE (09:02)
[2023-11-13] MEDS ORDERED: fentaNYL 100 MCG/2 ML VIAL ONE (09:02)
[2023-11-13] MEDS ORDERED: DEXMEDETOMIDINE 200 MCG/2 ML VIAL ONE ×2 (09:08→11:31)
[2023-11-13] MEDS ORDERED: ONDANSETRON 4 MG/2 ML VIAL ONE (09:08)
[2023-11-13] MEDS ORDERED: SODIUM CHLORIDE 0.9% 10 ML VIAL IVP ONE ×2 (09:09→09:27)
[2023-11-13] MEDS ORDERED: AZITHROMYCIN INJ 500 MG in SODIUM CHLORIDE 0.9% 250 ML IV ONE (09:09)
[2023-11-13] MEDS ORDERED: OXYTOCIN 10 UNIT/ML VIAL ONE (09:13)
[2023-11-13] MEDS ORDERED: OXYTOCIN/SODIUM CHLORIDE 500 ML IV ONE ×2 (09:18→10:27)
[2023-11-13] MEDS ORDERED: CARBOPROST TROMETHAMINE 250 MCG/ML VIAL IM ONE ×2 (09:19→09:33)
[2023-11-13] MEDS ORDERED: miSOPROStoL 200 MCG TABLET ONE ×2 (09:19→09:31)
[2023-11-13] MEDS ORDERED: METHYLERGONOVINE 0.2 MG/ML VIAL ONE (09:20)
[2023-11-13] MEDS ORDERED: TRANEXAMIC ACID 1,000 MG/10 ML VIAL ONE (10:12)
[2023-11-13] MEDS ORDERED: NIFEdipine 10 MG CAPSULE PO PRN (10:49)
[2023-11-13] MEDS ORDERED: hydrALAZINE INJ 20 MG/ML VIAL IVP PRN ×2 (10:49)
[2023-11-13] MEDS ORDERED: CALCIUM CARBONATE CHEW 500 MG TABLET PO PRN (10:49)
[2023-11-13] MEDS ORDERED: SIMETHICONE CHEW 80 MG TABLET PO PRN (10:49)
[2023-11-13] MEDS ORDERED: OXYTOCIN/SODIUM CHLORIDE 500 ML IV PRN (10:49)
[2023-11-13] MEDS ORDERED: LABETALOL 20 MG/4 ML SYRINGE IVP PRN ×3 (10:49)
[2023-11-13] MEDS ORDERED: diphenhydrAMINE 25 MG CAPSULE PO PRN (10:49)
[2023-11-13] MEDS ORDERED: HYDROmorphone 0.5 MG/0.5 ML SYRINGE IVP PRN (11:12)
[2023-11-13] MEDS ORDERED: fentaNYL 100 MCG/2 ML VIAL IVP PRN (11:12)
[2023-11-13] MEDS ORDERED: ATROPINE ABBOJECT 1 MG/10 ML SYRINGE IVP PRN (11:12)
[2023-11-13] MEDS ORDERED: MORPHINE 2 MG/ML CARPUJECT IVP PRN (11:12)
[2023-11-13] MEDS ORDERED: METOCLOPRAMIDE 10 MG/2 ML VIAL IVP PRN (11:12)
[2023-11-13] MEDS: ONDANSETRON 4 MG/2 ML VIAL IVP PRN (11:21)
--- NOTE | 2023-11-13 11:26 | OPERATIVE REPORT ---
Operative Report - General Admit Date: 11/12/23 - Other Other Information/Narrative: DATE OF PROCEDURE: 11/13/23 Surgeon: Miah Nguyen MD Survey Supervisor: Shonda Buchanan CNM Pre-Op Diagnosis: intolerance of labor Post-Op Diagnosis: intolerance of labor, PPH secondary to uterine atony, possible endometritis Procedures: Primary low transverse delivery, placement of Betzaida device Findings: Normal appearing uterus/tubes/ovaries. in OP position. Signi ficant uterine atony for which she received IM hemabate x 2 doses, IM methergine x 1 dose, 600mcg buccal cytotec, and 1g IV TXA x 2 doses without improvement in uterus tone. Betzaida device was placed and tone rapidly improved. Specimens: none. Anesthesia Technique: epidural Estimated Blood Loss (mls): 1500cc Blood Replacement (mls): none Fluid Replacement (mls): see anesthesia record Drains: quevedo Complications: hemorrhage secondary to uterine atony Condition: stable Procedure in Detail: I was called to the operating room by Dr. Conroy for emergency delivery for deceleration x 9 min. On my arrival, patient was in the operating room in supine position on the table. I reviewed risks of delivery with her including pain, bleeding, infection, injury to nearby structures including but not limited to bowel/bladder, . She verbally consented to proceeding with delivery. The abdomen was prepped with iodine and then draped. She received 2g ancef and 500mg azithromycin for antibiotic prophylaxis in the OR. A pfannenstiel skin incision was made with the scalpel and carried down through the subcutaneous tissue in the midline. The remainder of the subcutaneous tissue was then bluntly. The fascia was incised in the midline and the incision was extended bluntly. The superior aspect of the fascia was grasped with kochers and the rectus muscles further dissected off the fascia bluntly and with Gresham scissors. Finger dissection was used to separate the rectus muscles in the midline and the peritoneum was entered and the layers extended bluntly. The bladder blade was then inserted. The lower uterine segment was incised in a transverse fashion with the scalpel. The uterine incision was extended bluntly. The bladder blade was removed and the infants head was brought to the hysterotomy. Fundal pressure applied and the infant delivered without difficulty The cord was clamped and cut after 60 sec and the infant was handed off to the waiting provider. The placenta was removed with gentle uterine massage and cord traction. The uterus was exteriorized and cleared of all clots and debris with moist laparotomy sponges. Atony noted and additional pitocin was administered by anesthesia team. IM hemabate and IV TXA were also given. The uterine incision was repaired with 0 Vicryl in a running fashion. A second layer of 0 monocryl was used in an imbricating fashion. Uterine atony persisted and she was given IM methergine and buccal cytotec. The posterior cul-de-sac was cleared of all clots and debris with laparotomy sponges, and the uterus was returned to the abdomen. Severe atony persisted with uterine massage. I then asked for the Betzaida device and Dr. Conroy was called to assist with placement. A 2nd dose of hemabate was given after 15 min. The patient's legs were frog-legged and Dr. Conroy placed the Betzaida device which was connected to suction at 80mm Hg. Tone then subsequently improved. The gutters were cleared of all clots. The hysterotomy was inspected and hemostatic. The rectus muscles were carefully examined and hemostatic. The fascia was reapproximated with 0-Vicry in a running fashion. The subcutaneous tissues was irrigated. The subcutaneous tissue was reapproximated with 2-0 Vicryl, and the skin was closed with 4-0 monocryl. The patient tolerated the procedure well. Sponge, lap, needle, and instrument counts were correct at the end of the procedure. The patient was taken to the recovery room in stable condition. In recovery, patient noted to have a fever to 105 as well as tachycardia of 120's. Fever possibly secondary to uterotonics given in OR vs endometritis. She was given IV tylenol, 1L fluid bolus, and additional antibiotic (ancef redosed due to BMI and EBL, also given gentamycin and clindamycin). Blood cultures obtained prior to additional antibiotics given. Miah Nguyen MD
[2023-11-13] MEDS ORDERED: ACETAMINOPHEN 1,000 MG/100 ML 1,000 MG/100 ML BAG IV ONE (11:40)
[2023-11-13] MEDS ORDERED: LACTATED RINGERS 1,000 ML IV SCH (12:00)
[2023-11-13 12:15] LABS: BASOPHILS # (AUTO) 0.1 10^3/uL (0.0-0.1); BASOPHILS % (AUTO) 0.3 %; HCT - HEMATOCRIT 35.3 % (37.0-47.0); HGB - HEMOGLOBIN 11.8 g/dL (12.0-16.0); LYMPHOCYTES # (AUTO) 0.9 10^3/uL (1.5-3.5); LYMPHOCYTES % (AUTO) 3.9 %; MEAN CORPUSCULAR HEMOGLOBIN 31.1 pg (27.0-31.0); MEAN CORPUSCULAR HGB CONC 33.4 g/dL (32.0-36.0); MEAN CORPUSCULAR VOLUME 92.9 fL (81.0-99.0); MEAN PLATELET VOLUME 9.5 fL (7.9-10.8); MONOCYTES # (AUTO) 0.9 10^3/uL (0.0-1.0); MONOCYTES % (AUTO) 3.6 %; NEUTROPHILS % (AUTO) 91.3 %; PLT - PLATELET COUNT 313 10^3/uL (130-450); RED CELL DISTRIBUTION WIDTH 13.8 % (12.0-15.0); WHITE BLOOD COUNT 24.1 x10^3/uL (4.8-10.8)
[2023-11-13 12:26] LABS: SLIDE REVIEW? Indicated
[2023-11-13] MEDS: KETOROLAC 30 MG/ML VIAL IVP SCH (12:27)
[2023-11-13] MEDS: CLINDAMYCIN 900 MG/50 ML 900 MG/50 ML BAG IV SCH (12:27)
[2023-11-13] MEDS: SODIUM CHLORIDE 0.9% IV ONE (12:28)
[2023-11-13] MEDS: GENTAMICIN IV ONE (12:28)
--- NOTE | 2023-11-13 12:37 | PROVIDER PROGRESS NOTE ---
Labor Progress Note - Uterine Monitoring Uterine Monitoring Mode: positive: External toco Contraction Frequency (min/apart): 5-7 Contraction Intensity: positive: Moderate Uterine Resting Tone: positive: Soft - Monitoring Monitor Mode: positive: External ultrasound Heart Rate Baseline: 120s Heart Rate Variability: positive: Moderate (6-25 bmp) Accelerations: positive: Present, 15x15 - Vaginal Exam Dilation (in cm): 8 - Labor Progress Note Labor Progress Note/Additional Text: Called to bedside for evaluation of bradycardia unresolved with position changes. Pt in right side lying and moves to hands and knees without improvement in heart tones. I states my significant concern for well being with both the patient her her and expressed my recommendation to consult with remote control assembler physician for STAT delivery secondary to intolerance of labor and pt verbally consents at this time. Pitocin had been started at 2mU/m and then discontinued immediately secondary to bradycardia. SVE 8 with continued cervical edema FHR 80s x 6 minutes with FSE in place. Contractions palpate moderate every 5-7 minutes with soft resting tone Assessment: 28yo @ 41.2wks gestation Postdates intolerance of labor GBS negative Plan: square dance caller physician notified of urgent need for evaluation for delivery due to bradycardia. Upon physician presentation to the unit, care was handed to remote control assembler physician who assumed all medical care for the patient moving forward.
[2023-11-13 12:41] LABS: PLATELET MORPHOLOGY NORMAL APPEARANCE (NORMAL)
[2023-11-13 12:42] LABS: PLATELET ESTIMATE, MANUAL NORMAL (130-450,000) (NORMAL); RBC MORPHOLOGY (MULTIPLE) NORMAL APPEARANCE (NORMAL)
[2023-11-13] MEDS: ceFAZolin 2 GM VIAL IVP STA (13:09)
[2023-11-13] MEDS: LACTATED RINGERS 1,000 ML IV PRN (13:24)
--- NOTE | 2023-11-13 13:56 | ANESTHESIA POST OP EVALUATION ---
Anesthesia Post Eval - Post Anesthesia Eval Vitals: Last Vital Signs Temp 39.8 C H 11/13/23 12:00 Pulse 130 H 11/13/23 12:15 Resp 18 11/13/23 12:15 BP 130/79 11/13/23 12:15 Pulse Ox 98 11/13/23 12:15 O2 Flow Rate CV Function Including HR & BP: Stable (tachy) Pain Control: Satisfactory Nausea & Vomiting: Negative Mental Status: Baseline Respiratory Status: Airway Patent Hydration Status: Satisfactory Anesthesia Complications: None (Febrile for PACU)
[2023-11-13 15:59] LABS: BASOPHILS # (AUTO) 0.1 10^3/uL (0.0-0.1); BASOPHILS % (AUTO) 0.2 %; HGB - HEMOGLOBIN 10.8 g/dL (12.0-16.0); LYMPHOCYTES # (AUTO) 1.1 10^3/uL (1.5-3.5); LYMPHOCYTES % (AUTO) 5.2 %; MEAN CORPUSCULAR HEMOGLOBIN 31.9 pg (27.0-31.0); MEAN CORPUSCULAR HGB CONC 34.8 g/dL (32.0-36.0); MEAN CORPUSCULAR VOLUME 91.4 fL (81.0-99.0); MEAN PLATELET VOLUME 9.4 fL (7.9-10.8); MONOCYTES # (AUTO) 0.6 10^3/uL (0.0-1.0); MONOCYTES % (AUTO) 2.8 %; NEUTROPHILS # (AUTO) 18.9 10^3/uL (1.5-6.6); NEUTROPHILS % (AUTO) 91.2 %; PLT - PLATELET COUNT 277 10^3/uL (130-450); RED BLOOD COUNT 3.39 10^6/uL (4.20-5.40); RED CELL DISTRIBUTION WIDTH 13.8 % (12.0-15.0); WHITE BLOOD COUNT 20.7 x10^3/uL (4.8-10.8)
[2023-11-13] MEDS: ACETAMINOPHEN 500 MG TABLET PO SCH (16:16)
[2023-11-13 16:25] LABS: DIFFERENTIAL COMMENT MANUAL=AUTO DIFF; PLATELET ESTIMATE, MANUAL NORMAL (130-450,000) (NORMAL); PLATELET MORPHOLOGY NORMAL APPEARANCE (NORMAL)
[2023-11-13 16:30] LABS: ALBUMIN/GLOBULIN RATIO 1.5 (1.0-2.2); BILIRUBIN,TOTAL 0.4 mg/dL (0.2-1.0); CALCIUM 8.7 mg/dL (8.5-10.3); CREATININE 0.7 mg/dL (0.6-1.3); POTASSIUM 3.8 mmol/L (3.5-4.5)
--- NOTE | 2023-11-13 20:14 | MISCELLANEOUS PROVIDER NOTE ---
Miscellaneous Provider Note - - Note: Ernestina was evaluated multiple times at the bedside by myself throughout the day. Postoperatively, had fever to 105 and tachycardia, lactic acid level elevated concerning for possible sepsis. She received IV antibiotics and 3L LR and is now afebrile with improving tachycardia. Lung exam clear between fluid boluses and she has maintained excellent UOP. No significant increase in LE edema, patient actually feels it is improved from yesterday. Reflex lactic acid level has not yet been drawn. I discussed with RN this afternoon and then again this evening, new order needed per lab. Overall clinically improved. Betzaida suction was turned off approximately 4 hrs postoperatively and then removed by RN with scant bleeding and firm fundus. Bleeding remains scant and fundus firm. I recommended to Ernestina that we keep [address] overnight[address] Ernestina requests to keep quevedo in until the AM. OK for regular diet. Continue IV antibiotics for at least 24 hours postoperatively. Miah Nguyen MD
[2023-11-13] MEDS: DOCUSATE SODIUM 100 MG CAPSULE PO SCH (20:30)
[2023-11-14 05:54] LABS: BASOPHILS % (AUTO) 0.2 %; EOSINOPHILS % (AUTO) 0.1 %; HCT - HEMATOCRIT 28.1 % (37.0-47.0); HGB - HEMOGLOBIN 9.5 g/dL (12.0-16.0); LYMPHOCYTES % (AUTO) 13.8 %; MEAN CORPUSCULAR HEMOGLOBIN 31.4 pg (27.0-31.0); MEAN CORPUSCULAR HGB CONC 33.8 g/dL (32.0-36.0); MEAN CORPUSCULAR VOLUME 92.7 fL (81.0-99.0); MEAN PLATELET VOLUME 9.3 fL (7.9-10.8); MONOCYTES % (AUTO) 10.1 %; NEUTROPHILS % (AUTO) 74.7 %; PLT - PLATELET COUNT 259 10^3/uL (130-450); RED BLOOD COUNT 3.03 10^6/uL (4.20-5.40); RED CELL DISTRIBUTION WIDTH 14.2 % (12.0-15.0); WHITE BLOOD COUNT 17.7 x10^3/uL (4.8-10.8)
[2023-11-14 05:58] LABS: ABNORMAL LYMPHS % (MANUAL) 0 %
[2023-11-14] MEDS ORDERED: CLINDAMYCIN 900 MG/50 ML 900 MG/50 ML BAG IV SCH (06:00)
[2023-11-14] MEDS: IBUPROFEN 600 MG TABLET PO SCH (06:37)
[2023-11-14 06:41] LABS: BAND NEUTROPHILS % (MANUAL) 8 %; DIFFERENTIAL COMMENT MANUAL DIFFERENTIAL; LYMPHOCYTES # (MANUAL) 2.8 10^3/uL (1.5-3.5); LYMPHOCYTES % (MANUAL) 16 %; MONOCYTES # (MANUAL) 1.1 10^3/uL (0.0-1.0); NEUTROPHILS # (MANUAL) 13.8 10^3/uL (1.5-6.6); PLATELET ESTIMATE, MANUAL NORMAL (130-450,000) (NORMAL); RBC MORPHOLOGY (MULTIPLE) NORMAL APPEARANCE (NORMAL)
[2023-11-14] MEDS: LEVOTHYROXINE 25 MCG TABLET PO SCH (06:42)
--- NOTE | 2023-11-14 09:13 | PROVIDER PROGRESS NOTE ---
Subjective - Prog Note Date Prog Note Date: 11/14/23 Prog Note Time: 09:09 - Subjective Subjective: She reports that she is feeling well. Pain is well controlled with current medications. She ambulated around room last evening with assistance from RN She is tolerating a normal diet without N/V. Hanson catheter removed this AM, has not yet tried to void. Lochia reported as minimal She reports she is passing flatus. Denies dizziness, CP, SOB, F/C. Objective - Vital Signs/Intake & Output Vital Signs: Vital Signs x48h Temp Pulse Resp BP Pulse Ox 11/14/23 07:50 97.5 F L 89 16 93/55 L 98 11/14/23 03:03 97.2 F L 98 18 107/68 96 Intake & Output: Intake & Output 11/11/23 11/12/23 11/13/23 11/14/23 23:59 23:59 23:59 23:59 Intake Total 798.967 500 Output Total 2600 Balance -1801.033 500 - Lab Results Fish Bones: 11/14/23 05:49 11/13/23 15:53 Other Labs: Lab Results x24hrs 11/14/23 11/13/23 11/13/23 Range/Units 05:49 15:53 15:53 WBC 17.7 H (4.8-10.8) x10^3/uL RBC 3.03 L (4.20-5.40) 10^6/uL Hgb 9.5 L (12.0-16.0) g/dL Hct 28.1 L (37.0-47.0) % MCV 92.7 (81.0-99.0) fL MCH 31.4 H (27.0-31.0) pg MCHC 33.8 (32.0-36.0) g/dL RDW 14.2 (12.0-15.0) % Plt Count 259 (130-450) 10^3/uL MPV 9.3 (7.9-10.8) fL Neut # (Auto) Not Reportable (1.5-6.6) 10^3/uL Lymph # (Auto) Not Reportable (1.5-3.5) 10^3/uL [place] # (Auto) Not Reportable (0.0-1.0) 10^3/uL Eos # (Auto) Not Reportable (0.0-0.7) 10^3/uL Baso # (Auto) Not Reportable (0.0-0.1) 10^3/uL Absolute Nucleated RBC Not Reportable x10^3/uL Total Counted 100 Band Neuts % (Manual) 8 Abnorm Lymph % (Manual) 0 Nucleated RBC % Not Reportable /100WBC Neutrophils # (Manual) 13.8 H Lymphocytes # (Manual) 2.8 Monocytes # (Manual) 1.1 H Eosinophils # (Manual) 0.0 Basophils # (Manual) 0.0 Differential Comment MANUAL DIFFERENTIAL Manual Slide Review Platelet Estimate NORMAL (130-450,000) (NORMAL) Platelet Morphology (NORMAL) RBC Morph Micro Appear NORMAL APPEARANCE (NORMAL) Cord ABG pH Cord ABG pCO2 Cord ABG pO2 Cord ABG HCO3 Cord ABG Total CO2 Cord ABG Base Excess Cord ABG O2 Sat Cord VBG pH Cord VBG pCO2 Cord VBG pO2 Cord VBG HCO3 Cord VBG Total CO2 Cord VBG Base Excess Cord VBG O2 Sat Sodium (135-145) mmol/L Potassium (3.5-4.5) mmol/L Chloride (101-111) mmol/L Carbon Dioxide (21-32) mmol/L Anion Gap (6-13) BUN (6-20) mg/dL Creatinine (0.6-1.3) mg/dL Estimated GFR (MDRD) (>89) Glucose (74-104) mg/dL Lactic Acid 2.1 (0.5-2.2) mmol/L Calcium (8.5-10.3) mg/dL Total Bilirubin (0.2-1.0) mg/dL AST (10-42) IU/L ALT (10-60) IU/L Alkaline Phosphatase (42-121) IU/L Total Protein (6.4-8.9) g/dL Albumin (3.2-5.5) g/dL Globulin (2.1-4.2) g/dL Albumin/Globulin Ratio (1.0-2.2) Blood Type O NEGATIVE Weak D (Du) WEAK-D NEGATIVE Maternal Bleed NEGATIVE (NEGATIVE) 11/13/23 11/13/23 11/13/23 Range/Units 15:53 15:53 12:09 WBC 20.7 H (4.8-10.8) x10^3/uL RBC 3.39 L (4.20-5.40) 10^6/uL Hgb 10.8 L (12.0-16.0) g/dL Hct 31.0 L (37.0-47.0) % MCV 91.4 (81.0-99.0) fL MCH 31.9 H (27.0-31.0) pg MCHC 34.8 (32.0-36.0) g/dL RDW 13.8 (12.0-15.0) % Plt Count 277 (130-450) 10^3/uL MPV 9.4 (7.9-10.8) fL Neut # (Auto) 18.9 H (1.5-6.6) 10^3/uL Lymph # (Auto) 1.1 L (1.5-3.5) 10^3/uL [place] # (Auto) 0.6 (0.0-1.0) 10^3/uL Eos # (Auto) 0.0 (0.0-0.7) 10^3/uL Baso # (Auto) 0.1 (0.0-0.1) 10^3/uL Absolute Nucleated RBC 0.00 x10^3/uL Total Counted Band Neuts % (Manual) Not Reportable Abnorm Lymph % (Manual) Not Reportable Nucleated RBC % 0.0 /100WBC Neutrophils # (Manual) Not Reportable Lymphocytes # (Manual) Not Reportable Monocytes # (Manual) Not Reportable Eosinophils # (Manual) Not Reportable Basophils # (Manual) Not Reportable Differential Comment MANUAL=AUTO DIFF Manual Slide Review Platelet Estimate NORMAL (130-450,000) (NORMAL) Platelet Morphology NORMAL APPEARANCE (NORMAL) RBC Morph Micro Appear 1+ MICROCYTOSIS (NORMAL) Cord ABG pH Cord ABG pCO2 Cord ABG pO2 Cord ABG HCO3 Cord ABG Total CO2 Cord ABG Base Excess Cord ABG O2 Sat Cord VBG pH Cord VBG pCO2 Cord VBG pO2 Cord VBG HCO3 Cord VBG Total CO2 Cord VBG Base Excess Cord VBG O2 Sat Sodium 135 (135-145) mmol/L Potassium 3.8 (3.5-4.5) mmol/L Chloride 105 (101-111) mmol/L Carbon Dioxide 20 L (21-32) mmol/L Anion Gap 10.0 (6-13) BUN 10 (6-20) mg/dL Creatinine 0.7 (0.6-1.3) mg/dL Estimated GFR (MDRD) 101 (>89) Glucose 119 H (74-104) mg/dL Lactic Acid 3.8 H* (0.5-2.2) mmol/L Calcium 8.7 (8.5-10.3) mg/dL Total Bilirubin 0.4 (0.2-1.0) mg/dL AST 28 (10-42) IU/L ALT 14 (10-60) IU/L Alkaline Phosphatase 119 (42-121) IU/L Total Protein 5.0 L (6.4-8.9) g/dL Albumin 3.0 L (3.2-5.5) g/dL Globulin 2.0 L (2.1-4.2) g/dL Albumin/Globulin Ratio 1.5 (1.0-2.2) Blood Type Weak D (Du) Maternal Bleed (NEGATIVE) 11/13/23 11/13/23 Range/Units 12:09 09:22 WBC 24.1 H (4.8-10.8) x10^3/uL RBC 3.80 L (4.20-5.40) 10^6/uL Hgb 11.8 L (12.0-16.0) g/dL Hct 35.3 L (37.0-47.0) % MCV 92.9 (81.0-99.0) fL MCH 31.1 H (27.0-31.0) pg MCHC 33.4 (32.0-36.0) g/dL RDW 13.8 (12.0-15.0) % Plt Count 313 (130-450) 10^3/uL MPV 9.5 (7.9-10.8) fL Neut # (Auto) 22.0 H (1.5-6.6) 10^3/uL Lymph # (Auto) 0.9 L (1.5-3.5) 10^3/uL [place] # (Auto) 0.9 (0.0-1.0) 10^3/uL Eos # (Auto) 0.0 (0.0-0.7) 10^3/uL Baso # (Auto) 0.1 (0.0-0.1) 10^3/uL Absolute Nucleated RBC 0.00 x10^3/uL Total Counted Band Neuts % (Manual) Abnorm Lymph % (Manual) Nucleated RBC % 0.0 /100WBC Neutrophils # (Manual) Lymphocytes # (Manual) Monocytes # (Manual) Eosinophils # (Manual) Basophils # (Manual) Differential Comment Manual Slide Review Indicated Platelet Estimate NORMAL (130-450,000) (NORMAL) Platelet Morphology NORMAL APPEARANCE (NORMAL) RBC Morph Micro Appear NORMAL APPEARANCE (NORMAL) Cord ABG pH TNP Cord ABG pCO2 TNP Cord ABG pO2 TNP Cord ABG HCO3 TNP Cord ABG Total CO2 TNP Cord ABG Base Excess TNP Cord ABG O2 Sat TNP Cord VBG pH TNP Cord VBG pCO2 TNP Cord VBG pO2 TNP Cord VBG HCO3 TNP Cord VBG Total CO2 TNP Cord VBG Base Excess TNP Cord VBG O2 Sat TNP Sodium (135-145) mmol/L Potassium (3.5-4.5) mmol/L Chloride (101-111) mmol/L Carbon Dioxide (21-32) mmol/L Anion Gap (6-13) BUN (6-20) mg/dL Creatinine (0.6-1.3) mg/dL Estimated GFR (MDRD) (>89) Glucose (74-104) mg/dL Lactic Acid (0.5-2.2) mmol/L Calcium (8.5-10.3) mg/dL Total Bilirubin (0.2-1.0) mg/dL AST (10-42) IU/L ALT (10-60) IU/L Alkaline Phosphatase (42-121) IU/L Total Protein (6.4-8.9) g/dL Albumin (3.2-5.5) g/dL Globulin (2.1-4.2) g/dL Albumin/Globulin Ratio (1.0-2.2) Blood Type Weak D (Du) Maternal Bleed (NEGATIVE) - Other Results/Comments Other Results/Comments: GENERAL: NAD, sitting up in bed Resp: non-labored respirations ABDOMEN: Soft, appropriately tender, no significant distention. Fundus firm. INCISION: Dressing clean and intact. EXT: trace LE edema. No evidence of DVT. Sepsis Event Note (H) - Evaluation Current Stage of Sepsis: Resolved Possible source of Sepsis: positive: Genitourinary - Sepsis Criteria Sepsis Criteria: Suspected or Documented, Recorded Temperature greater than 38.3C or Less than 36C, Recorded Heart Rate greater than 90 bpm, WBC count greater than 12,000 or less than 4000, Metabolic: lactate > 2 mmol/L Assessment/Plan - Problem List (1) S/P section Impression: - Overall doing well this morning - Continue routine postoperative care - Recommended inpatient monitoring for 24-48 hrs after last fever. (2) Postoperative fever Impression: Fever after delivery, possibly secondary to sepsis vs reaction from uterotonics administered at time of delivery. Initial lactate elevated, repeat normal. Ta chycardia resolved. Blood cultures pending. Received last dose of IV antibiotic this AM, will monitor today. Overall clinically improved. (3) Acute blood loss anemia Impression: - asymptomatic, lochia miminimal. PO PO Fe on discharge. (6) Rh negative state in antepartum period Impression: - Rhogam if indicated
[2023-11-14] MEDS: ONDANSETRON 4 MG/2 ML VIAL IVP PRN (10:01)
[2023-11-14] MEDS: oxyCODONE 5 MG TABLET PO PRN (10:01)
[2023-11-14] MEDS ORDERED: IBUPROFEN 600 MG TABLET PO SCH (11:00)
[2023-11-14] MEDS: RHO(D) IMMUNE GLOBULIN 300 MCG SYRINGE IVP ONE (11:55)
[2023-11-14] MEDS: ENOXAPARIN 40 MG/0.4 ML SYRINGE SUBQ SCH (16:33)
[2023-11-15 10:30] VITALS: O2SAT 99
[2023-11-15 14:43] VITALS: BP 116/62
--- NOTE | 2023-11-15 19:19 | Labor Flowsheet ---
Labor Flowsheet Datetime Report Generated by CPN: 11/15/2023 19:19 Datetime: 11/13/2023 14:46 Membranes Ruptured Date/Time: 11/12/2023 08:30 Membranes Rupture Method: Spontaneous Amniotic Fluid Color: Clear Datetime: 11/13/2023 08:54 Communication Comments: EFMs disconnected. Patient transports from [id number] to OR1 via bed by Bobbi mazariegos RN, Atul Buchanan CNM and Katherin Dixon APRN. FSE removed in OR prior to C/S. Datetime: 11/13/2023 08:48 VITAL SIGNS NBP Sys/Heike/Mean (mmHg): 96 : 77 : 81 LaborFlag: Labor Datetime: 11/13/2023 08:46 Pulse: 102 Datetime: 11/13/2023 08:45 SpO2 (%): 99 MEDICATIONS Pitocin (milliunits): Discontinued PATIENT CARE IV/Blood Work: IV Bolus Started; IV Bolus Given ml @ 999 Datetime: 11/13/2023 08:44 Patient Position/Activity: Right Lateral COMMUNICATION Communication: RN at Bedside; RN Reviewed Strip Datetime: 11/13/2023 08:30 UTERINE ACTIVITY Monitor Mode: External Frequency (min): 9-10 Duration (sec): 80-100 Pattern: Normal: <= 5 Contractions in 10 Minutes Pitocin Checklist: At Least 1 Acceleration of 15 bpm x 15 Seconds in 30 Minutes or Adequate Variabi lity; No More than 1 Late Deceleration Occurred in Past 30 Minutes; No More than 2 Variable Decelerat ions > 60 Seconds in Duration and decreasing >60 bpm in 30 minutes; No More than 5 Uterine Contractio ns in 10 Minutes for any 20 Minute Interval; Uterus Palpates Soft between Contractions; IUPC Resting Tone less than 25 mmHg ASSESSMENT A Monitor Mode: Internal Scalp Electrode FHR Baseline Rate : 130 Variability: Moderate 6-25 bpm Accelerations: 15X15 Decelerations: None Category: Category I Datetime: 11/13/2023 08:08 I/O Interventions: Hanson Cath Inserted Datetime: 11/13/2023 08:00 Quality: Moderate Resting Tone (Palpate): Relaxed Datetime: 11/13/2023 07:28 ANESTHESIA Epidural Procedure: Cath Placed Datetime: 11/13/2023 07:14 Patient Care Comments: Patient sitting up for epidural Datetime: 11/13/2023 07:10 Notification Reason: Status Update; Status; Labor Status Datetime: 11/13/2023 07:03 Provider Notified (Name): A. Magy, IMMUNOPATHOLOGIST Datetime: 11/13/2023 07:00 FHR Baseline Changes: No Baseline Change Oxygen Method: Room Air Datetime: 11/13/2023 06:40 TEACHING Instructional Method: Verbal Plan of Care: Plan of Care Discussed Labor/Induction: Augmentation Pain Management: IV Narcotics; Epidural Teaching Comments: Discussed px management options prior to starting pitocin per pt's request. Datetime: 11/13/2023 06:07 Exam by: K. Burckhardt, [employer] Vaginal Exam Comments: unchanged Datetime: 11/13/2023 04:30 Actions for Decelerations: Other Comments: interrupted strip pattern d/t maternal repositioning/movement. Briefly switched out FSE t o external monitoring for pt to go to BR Datetime: 11/13/2023 03:23 Monitor Interventions for UA: [place] Adjusted Contraction Comments: baselined Datetime: 11/13/2023 02:11 Analgesics/Sedatives: Benadryl (mg) @ 25 Datetime: 11/13/2023 01:41 Monitor Interventions for FHR: FSE Applied Datetime: 11/13/2023 01:39 VAGINAL EXAM Dilatation (cm): 7.0 Station: 1 Datetime: 11/12/2023 22:43 Effacement (%): 100 Datetime: 11/12/2023 22:35 Nausea/Vomiting: Present Datetime: 11/12/2023 21:10 Pain Coping: Breathing Through Contractions; Crying; Writhing Datetime: 11/12/2023 21:03 Temperature (C): 37.1 Datetime: 11/12/2023 19:56 Pain Assessment Comments: Pt requests nitrous Datetime: 11/12/2023 19:45 MATERNAL ASSESSMENT Level of Consciousness: Alert DTR's/Clonus: No Clonus Headache: Denies Breath Sounds, Left: Clear and Equal Breath Sounds, Right: Clear and Equal Datetime: 11/12/2023 19:38 PAIN Pain Scale: 8 Pain Type: Contraction Pain Relief Measures: Comfort Measures Comfort Measures: Breathing/Relaxation; Family Support Datetime: 11/12/2023 17:52 Stage of : Labor
--- NOTE | 2023-11-15 19:28 | DISCHARGE SUMMARY ---
"Discharge Summary Admit Date: 11/12/23 Discharge Date: 11/15/23 Discharging Provider: Yulia Clemens MD Code Status: Attempt Resuscitation Condition at Discharge: Good Discharge Disposition: 01 Home, Self Care - DIAGNOSES Admission Diagnoses: Rupture of membranes at term. obesity excessive weight gain in Rh neg. Discharge Diagnoses with Status of Each Condition: spontaneous labor at 41 weeks. progressed to 8 cm with swollen cervix, prolonged first stage of labor bradycardia resulting in emergency c section severe uterine atony requiring Betzaida device after multiple medications failed to precipitate adequate uterine contraction. pp high fever - unclear if from overmedication with misoprostol for atony or true endometritis. antibiotics given for 24 hrs with no further fever. obesity post operative anemia treated with po iron and not symptomatic. - HPI History of Present Illness: Patient received care with Shonda Buchanan CNM. She presented with SROM at home in active labor. complicated by hypothyroid, obesity, pseudoseizures. She desired a low intervention . - CONSULTS | PROCEDURES Procedures: Primary low tranverse c section with uterine atony requiring placement of Betzaida device. November 13, 2023 - HOSPITAL COURSE Hospital Course: Admitted in labor, 5 cm. progressed slowly overnight. She got to 8 cm and had bradycardia at about 8 am. She was taken back for emergency c section. Baby was 4319 gram, 21 3/4 in long, apgars were 9/9. C section was complicated by lack of contraction of the uterus inspite of multiple medications. Dr Nguyen asked for the Betzaida device as she felt this was the only way to save her uterus. Dr. Conroy happened to be available and came to the OR to place this. It worked immediately to bring tone to the uterus. C section was finished. It was found that she received 1200 mcg of misoprostol instead of 600 mcg. After the c section Ernestina had a very high fever. It was not clear if this was a reaction to the prostaglandin or if she was truly infected. lactate and WBC were elevated by would be just from the c section. Patient was treated with iv acetominophen x 1 and antibiotics for 24 hrs. Fever resolved relatively quickly. Betzaida was removed about 4 hours post placement. Rest of her post operative course was not remarkable and she was discharged home on pod #2. She did not need a blood transfusion. - ALLERGIES Allergies/Adverse Reactions: Allergies Allergy/AdvReac Type Severity Reaction Status Date / Time hydrocodone AdvReac Rash Verified 06/15/23 02:06 Penicillins AdvReac Rash Verified 11/12/23 15:42 prednisolone AdvReac Unknown Verified 06/15/23 02:06 - MEDICATIONS Home Medications: Ambulatory Orders Medication Instructions Recorded Confirmed Acetaminophen [Tylenol] 650 mg PO Q6H PRN 11/12/23 11/12/23 Cetirizine [ZyrTEC] 10 mg PO DAILY PRN 11/12/23 11/12/23 Levothyroxine Sodium 50 mcg PO DAILY 11/12/23 11/12/23 Pnv No.95/Ferrous Fum/Folic AC 1 each PO DAILY 11/12/23 11/12/23 [ Tablet] Acetaminophen [Tylenol] 1,000 mg PO Q8H PRN #50 tab 11/15/23 Calcium Carbonate [Tums (Calcium 1,000 mg PO Q6HR PRN tab 11/15/23 Carbonate 500mg)] Docusate Sodium 100Mg Capsule 200 mg PO BID PRN #50 cap 11/15/23 [Colace 100Mg Capsule] Ibuprofen [Motrin] 600 mg PO Q6HR PRN #50 tab 11/15/23 Levothyroxine [Synthroid] 50 mcg PO QDAC tab 11/15/23 oxyCODONE [Roxicodone] 5 - 10 mg PO Q4HR PRN #15 tab 11/15/23 - PHYSICAL EXAM AT DISCHARGE General Appearance: positive: No acute distress Respiratory: positive: No respiratory distress Cardiovascular: positive: Regular rate & rhythm Extremities: positive: Non-tender, Pedal edema (2+) - LABS Result Diagrams: 11/14/23 05:49 11/13/23 15:53 - SEPSIS Current Stage of Sepsis: Resolved Possible source of Sepsis: Genitourinary Sepsis Criteria: Suspected or Documented, Recorded Temperature greater than 38.3C or Less than 36C, Recorded Heart Rate greater than 90 bpm, WBC count greater than 12,000 or less than 4000, Metabolic: lactate > 2 mmol/L - FOLLOW UP Follow Up: with Dr. Nguyen next week - TIME SPENT Time Spent in Discharge (Minutes): 30"
== END 2023-11-15 17:00 | disposition home or self-care (01) | DRG 787 ==
LOC: FBP 14:23 → WFO 14:23 → FBP 15:07
PROVIDERS: ADMIT Nurse Practitioner Obstetrics & Gynecology; ATTEND Obstetrics & Gynecology
PROC: 4A1H7CZ Monitoring of Products of Conception, Cardiac Rate, Via Natural or Artificial Opening (ICD-10-PCS; 2023-11-13)
PROC: 10D00Z1 Extraction of Products of Conception, Low, Open Approach (ICD-10-PCS; principal; 2023-11-13 09:00)
DX: O63.0 Prolonged first stage (of labor) (principal); D62 Acute posthemorrhagic anemia; O72.1 Other immediate postpartum hemorrhage; Z3A.41 41 weeks gestation of pregnancy; Z37.0 Single live birth; O48.0 Post-term pregnancy; O76 Abnormality in fetal heart rate and rhythm complicating labor and delivery; O99.214 Obesity complicating childbirth; O99.284 Endocrine, nutritional and metabolic diseases complicating childbirth; E03.9 Hypothyroidism, unspecified; O99.344 Other mental disorders complicating childbirth; F44.5 Conversion disorder with seizures or convulsions; O99.892 Other specified diseases and conditions complicating childbirth; N88.8 Other specified noninflammatory disorders of cervix uteri; O90.81 Anemia of the puerperium; Z79.890 Hormone replacement therapy
CPT/HCPCS: 36415; 80053; 82570; 82803; 83033; 83605; 84156; 85025; 86850; 86900; 86901; 86920; 87040; A9270; J0131; J1200; J1580; J1650; J2210; J2372; J7120; 85027